=== PATIENT | male | born 1945 | race Caucasian/White ===

== ENCOUNTER 2017-05-22 16:55 | Inpatient (IN) | payer MEDICARE ==
[2017-05-22] MEDS ORDERED: IPRATROPIUM-ALBUTEROL 3 ML NEB INHALATION STA (18:05)
[2017-05-22] MEDS ORDERED: SODIUM CHLORIDE 0.9% 1,000 ML IV STA (18:05)
[2017-05-22] MEDS ORDERED: SODIUM CHLORIDE 0.9% 500 ML IV STA ×2 (18:05→19:09)
[2017-05-22 18:24] LABS: Basophils % (A) 1 %; Eosinophils # (A) 0.3 k/uL (0-0.7); Eosinophils % (A) 6 %; HCT 31.1 % (39.0-53.0); Lymphocytes # (A) 0.8 k/uL (1.0-4.8); Lymphocytes % (A) 20 %; MCH 29.2 pg (25.0-35.0); MCHC 35.2 g/dL (31.0-37.0); Mean Platelet Volume 6.3; Monocytes # (A) 0.5 k/uL (0-1.0); Monocytes % (A) 11 %; Neutrophils # (A) 2.5 k/uL (1.3-7.7); Neutrophils % (A) 60 %; Platelet Count 259 k/uL (150-450); RBC 3.76 m/uL (4.30-5.90); RDW 14.5 % (11.5-15.5); WBC 4.2 k/uL (3.8-10.6)
[2017-05-22 18:25] LABS: MCV 82.8 fL (80.0-100.0)
[2017-05-22 18:33] LABS: D-Dimer 3.1 mg/L FEU (<0.60)
[2017-05-22 18:38] LABS: INR 0.9 (<1.2); Partial Thromboplastin Time 24.4 sec (22.0-30.0); Prothrombin Time 9.4 sec (9.0-12.0)
[2017-05-22 18:41] LABS: ALT 31 U/L (21-72); AST 33 U/L (17-59); Albumin 3.8 g/dL (3.5-5.0); Alkaline Phosphatase 100 U/L (38-126); Anion Gap 9 mmol/L; Blood Urea Nitrogen 17 mg/dL (9-20); Calcium 9.2 mg/dL (8.4-10.2); Carbon Dioxide 27 mmol/L (22-30); Chloride 90 mmol/L (98-107); Glucose 138 mg/dL (74-99); Magnesium 1.5 mg/dL (1.6-2.3); Potassium 4.2 mmol/L (3.5-5.1); Sodium 126 mmol/L (137-145); Total Bilirubin 0.2 mg/dL (0.2-1.3); Total Protein 6.9 g/dL (6.3-8.2)
[2017-05-22 18:46] LABS: Creatine Kinase 197 U/L (55-170)
[2017-05-22 18:59] LABS: Troponin I <0.012 ng/mL (0.000-0.034)
[2017-05-22 19:01] LABS: Creatine Kinase MB 3.9 ng/mL (0.0-2.4)
--- NOTE | 2017-05-22 19:06 | XR ---
EXAMINATION TYPE: XR chest 2V DATE OF EXAM: 05/22/2017 COMPARISON: 01/08/2011 HISTORY: Cough and difficulty breathing TECHNIQUE: Frontal and lateral views of the chest are obtained. FINDINGS: There is no heart failure nor confluent pneumonic infiltrate. There is slight coarsening o f interstitial markings. There are chest leads. Costophrenic angles are clear. Bony thorax is intact. There is neurostimulator in the thoracic spine. IMPRESSION: Mild pulmonary fibrotic changes. No acute lung disease. No change compared to old exam.
[2017-05-22] MEDS ORDERED: MAGNESIUM SULFATE-D5W PMX 1 GM in DEXTROSE/WATER 1 100ML.BAG IVPB ONE (19:09)
[2017-05-22] MEDS ORDERED: MAGNESIUM OXIDE 400 MG TAB PO STA (19:09)
[2017-05-22] MEDS ORDERED: RX INFO: IV CONTRAST WAS GIVEN 1 EACH MISC MISCELLANE PRN (19:09)
--- NOTE | 2017-05-22 19:42 | ED ---
General Adult HPI - General Chief complaint: Upper Respiratory Infection Stated complaint: Cough/Difficulty Breathing Time Seen by Provider: 05/22/17 17:20 Source: patient, RN notes reviewed, old records reviewed Mode of arrival: ambulatory Limitations: no limitations - History of Present Illness Initial comments: This is a 72-year-old male to the ER for evaluation. This patient is a for evaluation of cough. Cough and shortness of breath. Patient has medical history significant for COPD diabetes hypertension. Patient has been seen by family doctor and evaluated, told possible pneumonia. Patient's was also significantly in the week she has gotten better. She states this patient with the cough is only worsen, he feels like he is getting progressively weaker and more fatigued. Patient denies significant fevers no chest pain. - Related Data Home Medications Medication Instructions Recorded Confirmed Albuterol Inhaler [Ventolin 2 puff INHALATION RT-Q6H PRN 01/02/15 05/22/17 Inhaler] Budesonide/Formoterol Fumarate 2 puff INHALATION RT-BID PRN 01/02/15 05/22/17 [Symbicort 80-4.5 Mcg Inhaler] Dilaudid Pain Pump 1 dose EPIDURAL CONTINUOUS 01/02/15 05/22/17 Omeprazole [PriLOSEC] 20 mg PO DAILY 01/02/15 05/22/17 Solifenacin Succinate [Vesicare] 10 mg PO DAILY 01/02/15 05/22/17 amLODIPine [Norvasc] 5 mg PO QAM 01/02/15 05/22/17 glipiZIDE [Glucotrol] 15 mg PO DAILY 01/02/15 05/22/17 Albuterol Nebulized [Ventolin 2.5 mg INHALATION RT-Q6H PRN 05/22/17 05/22/17 Nebulized] Losartan/Hydrochlorothiazide 1 tab PO DAILY 05/22/17 05/22/17 [Losartan-Hctz 100-25 mg Tab] PARoxetine HCL [Paxil] 40 mg PO DAILY 05/22/17 05/22/17 Pregabalin [Lyrica] 150 mg PO TID 05/22/17 05/22/17 oxyCODONE-APAP 10-325MG [Percocet 1 tab PO Q6HR PRN 05/22/17 05/22/17 10-325 mg] Allergies Allergy/AdvReac Type Severity Reaction Status Date / Time No Known Allergies Allergy Verified 05/22/17 17:46 Review of Systems ROS Statement: Those systems with pertinent positive or pertinent negative responses have been documented in the HPI. ROS Other: All systems not noted in ROS Statement are negative. Past Medical History Past Medical History: COPD, Diabetes Mellitus, GERD/Reflux, Hypertension History of Any Multi-Drug Resistant Organisms: None Reported Past Surgical History: Back Surgery, Joint Replacement, Orthopedic Surgery Additional Past Surgical History / Comment(s): colectomy, nose surgery Past Psychological History: Depression Smoking Status: Former smoker Past Alcohol Use History: None Reported Past Drug Use History: None Reported General Exam Limitations: no limitations General appearance: alert, in no apparent distress Head exam: Present: atraumatic, normocephalic, normal inspection Eye exam: Present: normal appearance, PERRL, EOMI. Absent: scleral icterus, conjunctival injection, periorbital swelling ENT exam: Present: normal exam, mucous membranes moist Neck exam: Present: normal inspection. Absent: tenderness, meningismus, lymphadenopathy Respiratory exam: Present: normal lung sounds bilaterally. Absent: respiratory distress, wheezes, rales, rhonchi, stridor Cardiovascular Exam: Present: regular rate, normal rhythm, normal heart sounds. Absent: systolic murmur, diastolic murmur, rubs, gallop, clicks GI/Abdominal exam: Present: soft, normal bowel sounds. Absent: distended, tenderness, guarding, rebound, rigid Extremities exam: Present: normal inspection, full ROM, normal capillary refill. Absent: tenderness, pedal edema, joint swelling, calf tenderness Back exam: Present: normal inspection Neurological exam: Present: alert, oriented X3, CN II-XII intact Psychiatric exam: Present: normal affect, normal mood Skin exam: Present: warm, dry, intact, normal color. Absent: rash Course Vital Signs 05/22/17 05/22/17 05/22/17 16:58 18:18 18:32 Temperature 98.5 F Pulse Rate 89 62 68 Respiratory 20 16 16 Rate Blood Pressure 146/68 O2 Sat by Pulse 94 L Oximetry 05/22/17 05/22/17 19:12 20:07 Temperature 97.6 F Pulse Rate 63 64 Respiratory 20 20 Rate Blood Pressure 158/59 169/78 O2 Sat by Pulse 98 98 Oximetry - Reevaluation(s) Reevaluation #1: 05/22/17 19:42 Patient is feeling much better with breathing treatment and symptom therapy EKG Findings - EKG Comments: EKG Findings:: EKG shows normal sinus rhythm rate of 60, TX 172, QRS 90, QTc 436 Medical Decision Making - Medical Decision Making 72 male the ER for evaluation, patient is ER for evaluation of cough congestion. Continue cough and congestion despite outpatient therapy, antibiotics. Patient has significant electrolyte or male is continuing to weakness and hyponatremia magnesium and chloride. Patient admit for electronically replacement, steroids and breathing treatments - Lab Data Result diagrams: 05/22/17 17:54 05/22/17 17:54 Lab Results 05/22/17 05/22/17 05/22/17 Range/Units 17:54 17:54 17:54 WBC 4.2 (3.8-10.6) k/uL RBC 3.76 L (4.30-5.90) m/uL Hgb 11.0 L (13.0-17.5) gm/dL Hct 31.1 L (39.0-53.0) % MCV 82.8 D (80.0-100.0) fL MCH 29.2 (25.0-35.0) pg MCHC 35.2 (31.0-37.0) g/dL RDW 14.5 (11.5-15.5) % Plt Count 259 (150-450) k/uL Neutrophils % 60 % Lymphocytes % 20 % Monocytes % 11 % Eosinophils % 6 % Basophils % 1 % Neutrophils # 2.5 (1.3-7.7) k/uL Lymphocytes # 0.8 L (1.0-4.8) k/uL Monocytes # 0.5 (0-1.0) k/uL Eosinophils # 0.3 (0-0.7) k/uL Basophils # 0.0 (0-0.2) k/uL PT (9.0-12.0) sec INR (<1.2) APTT (22.0-30.0) sec D-Dimer (<0.60) mg/L FEU Sodium 126 L (137-145) mmol/L Potassium 4.2 (3.5-5.1) mmol/L Chloride 90 L (98-107) mmol/L Carbon Dioxide 27 (22-30) mmol/L Anion Gap 9 mmol/L BUN 17 (9-20) mg/dL Creatinine 0.70 (0.66-1.25) mg/dL Est GFR (MDRD) Af Amer >60 (>60 ml/min/1.73 sqM) Est GFR (MDRD) Non-Af >60 (>60 ml/min/1.73 sqM) Glucose 138 H (74-99) mg/dL Calcium 9.2 (8.4-10.2) mg/dL Magnesium 1.5 L (1.6-2.3) mg/dL Total Bilirubin 0.2 (0.2-1.3) mg/dL AST 33 (17-59) U/L ALT 31 (21-72) U/L Alkaline Phosphatase 100 (38-126) U/L Total Creatine Kinase 197 H (55-170) U/L CK-MB (CK-2) 3.9 H* (0.0-2.4) ng/mL CK-MB (CK-2) Rel Index 2.0 Troponin I <0.012 (0.000-0.034) ng/mL NT-Pro-B Natriuret Pep pg/mL Total Protein 6.9 (6.3-8.2) g/dL Albumin 3.8 (3.5-5.0) g/dL Influenza Type A RNA (Not Detectd) Influenza Type B (PCR) (Not Detectd) 05/22/17 05/22/17 05/22/17 Range/Units 17:54 17:54 17:54 WBC (3.8-10.6) k/uL RBC (4.30-5.90) m/uL Hgb (13.0-17.5) gm/dL Hct (39.0-53.0) % MCV (80.0-100.0) fL MCH (25.0-35.0) pg MCHC (31.0-37.0) g/dL RDW (11.5-15.5) % Plt Count (150-450) k/uL Neutrophils % % Lymphocytes % % Monocytes % % Eosinophils % % Basophils % % Neutrophils # (1.3-7.7) k/uL Lymphocytes # (1.0-4.8) k/uL Monocytes # (0-1.0) k/uL Eosinophils # (0-0.7) k/uL Basophils # (0-0.2) k/uL PT 9.4 (9.0-12.0) sec INR 0.9 (<1.2) APTT 24.4 (22.0-30.0) sec D-Dimer 3.10 H (<0.60) mg/L FEU Sodium (137-145) mmol/L Potassium (3.5-5.1) mmol/L Chloride (98-107) mmol/L Carbon Dioxide (22-30) mmol/L Anion Gap mmol/L BUN (9-20) mg/dL Creatinine (0.66-1.25) mg/dL Est GFR (MDRD) Af Amer (>60 ml/min/1.73 sqM) Est GFR (MDRD) Non-Af (>60 ml/min/1.73 sqM) Glucose (74-99) mg/dL Calcium (8.4-10.2) mg/dL Magnesium (1.6-2.3) mg/dL Total Bilirubin (0.2-1.3) mg/dL AST (17-59) U/L ALT (21-72) U/L Alkaline Phosphatase (38-126) U/L Total Creatine Kinase (55-170) U/L CK-MB (CK-2) (0.0-2.4) ng/mL CK-MB (CK-2) Rel Index Troponin I (0.000-0.034) ng/mL NT-Pro-B Natriuret Pep 95 pg/mL Total Protein (6.3-8.2) g/dL Albumin (3.5-5.0) g/dL Influenza Type A RNA Not Detected (Not Detectd) Influenza Type B (PCR) Not Detected (Not Detectd) - Radiology Data Radiology results: report reviewed (Chest x-ray CTA chest negative for acute disease), image reviewed Disposition Clinical Impression: Acute exacerbation of chronic obstructive pulmonary disease (COPD), Hyponatremia, Failure of outpatient treatment Disposition: ADMITTED IP TO THIS HOSP Condition: Fair Referrals: Singh Childers MD [Primary Care Provider] - 1-2 days
--- NOTE | 2017-05-22 19:58 | CT ---
EXAMINATION TYPE: CT angio chest DATE OF EXAM: 05/22/2017 7:49 PM COMPARISON: NONE HISTORY: Cough and shortness of breath x couple weeks. CT DLP: 631 mGycm Automated exposure control for dose reduction was used. CONTRAST: CTA scan of the thorax is performed with IV Contrast, patient injected with 82 mL of Omnipaque 350, p ulmonary embolism protocol. There are 3-D post processed images.. FINDINGS: There is some groundglass interstitial infiltrate in the right upper lobe. There is similar change in the superior segment right lower lobe. Thoracic aorta is atheromatous. There is no evidence of aneurysm or dissection. There are multiple me diastinal lymph nodes that measure up to 1 cm. There are bilateral bronchial lymph nodes that measure up to 1 cm. There is no pericardial effusion. Heart size is normal. There is no pleural effusion. There is no evidence of a pulmonary mass. I see no filling defects in the pulmonary arteries. There is some spurring in the thoracic spine. I s ee no focal bone destruction. There is neurostimulator in the thoracic spine. IMPRESSION: NO EVIDENCE OF PULMONARY EMBOLISM. ATHEROSCLEROTIC VASCULAR DISEASE. INTERSTITIAL PULMONARY INFILTRATES ON THE RIGHT SIDE. MILD MEDIASTINAL AND BRONCHIAL ADENOPATHY. THIS IS NONSPECIFIC.
[2017-05-22] MEDS ORDERED: methylPREDNISolone SOD SUCCI 125 MG/2 ML VIAL IV STA (20:10)
[2017-05-22] MEDS ORDERED: SODIUM CHLORIDE 0.9% 1,000 ML IV SCH (20:15)
[2017-05-22] MEDS ORDERED: AZITHROMYCIN 500 MG in SODIUM CHLORIDE 0.9% 250 ML IVPB STA (20:37)
[2017-05-22] MEDS ORDERED: ALBUTEROL NEBULIZED 2.5 MG/3 ML INHALATION PRN (22:15)
[2017-05-22] MEDS ORDERED: PARoxetine 20 MG TAB PO SCH ×2 (22:15→23:00)
[2017-05-22] MEDS ORDERED: ALBUTEROL INHALER 60 PUFF/8 GM INHALER INHALATION PRN (22:15)
[2017-05-22 22:52] LABS: Glucose,Whole Blood 353 mg/dL (75-99)
[2017-05-22] MEDS: oxyCODONE-APAP 10-325MG 1 EACH TAB PO PRN (23:27)
[2017-05-22] MEDS: guaiFENesin SYRUP 100MG/5ML 200 MG/10 ML CUP PO PRN (23:27)
[2017-05-22] MEDS: INSULIN ASPART 100 UNIT/ML 1 ML 10 ML VIAL SQ SCH (23:27)
[2017-05-22] MEDS: MAGNESIUM SULFATE-D5W PMX 1 GM in DEXTROSE/WATER 1 100ML.BAG IVPB SCH ×2 (23:27→23:34)
[2017-05-22] MEDS: SODIUM CHLORIDE 0.9% 1,000 ML IV SCH (23:28)
[2017-05-22] MEDS: PREGABALIN 75 MG CAP PO SCH (23:34)
[2017-05-22] MEDS: methylPREDNISolone SOD SUCCI 125 MG/2 ML VIAL IV SCH (23:36)
[2017-05-22] MEDS: PARoxetine 20 MG TAB PO SCH (23:38)
[2017-05-23] MEDS: methylPREDNISolone SOD SUCCI 125 MG/2 ML VIAL IV SCH ×4 (06:36→18:30)
[2017-05-23] MEDS ORDERED: INSULIN ASPART 100 UNIT/ML 1 ML 10 ML VIAL SQ SCH (07:30)
[2017-05-23 07:52] LABS: Glucose,Whole Blood 194 mg/dL (75-99)
[2017-05-23 08:00] LABS: Basophils % (A) 0 %; Eosinophils % (A) 0 %; HCT 34.3 % (39.0-53.0); HGB 11.3 gm/dL (13.0-17.5); Lymphocytes # (A) 0.4 k/uL (1.0-4.8); Lymphocytes % (A) 18 %; MCH 28.5 pg (25.0-35.0); MCHC 33.1 g/dL (31.0-37.0); MCV 86.1 fL (80.0-100.0); Mean Platelet Volume 6.1; Monocytes % (A) 1 %; Neutrophils # (A) 1.7 k/uL (1.3-7.7); Neutrophils % (A) 79 %; Platelet Count 282 k/uL (150-450); RBC 3.99 m/uL (4.30-5.90); RDW 13.7 % (11.5-15.5); WBC 2.2 k/uL (3.8-10.6)
[2017-05-23] MEDS: oxyCODONE-APAP 10-325MG 1 EACH TAB PO PRN ×2 (08:00→20:59)
[2017-05-23] MEDS: AZITHROMYCIN 500 MG in SODIUM CHLORIDE 0.9% 250 ML IVPB SCH (08:07)
[2017-05-23] MEDS: ENOXAPARIN 40 MG/0.4 ML SYRINGE SQ SCH (08:07)
[2017-05-23] MEDS: glipiZIDE 5 MG TAB PO SCH (08:07)
[2017-05-23] MEDS: amLODIPine 5 MG TAB PO SCH (08:08)
[2017-05-23] MEDS: INSULIN ASPART 100 UNIT/ML 1 ML 10 ML VIAL SQ SCH ×4 (08:08→20:58)
[2017-05-23] MEDS: LOSARTAN-HCTZ 50-12.5 MG 1 EACH TAB PO SCH (08:08)
[2017-05-23] MEDS: OXYBUTYNIN XL 5 MG TAB.ER.24 PO SCH (08:08)
[2017-05-23] MEDS: PANTOPRAZOLE 40 MG TABLET PO SCH (08:09)
[2017-05-23 08:13] LABS: ALT 35 U/L (21-72); AST 31 U/L (17-59); Albumin 3.9 g/dL (3.5-5.0); Alkaline Phosphatase 92 U/L (38-126); Anion Gap 11 mmol/L; Blood Urea Nitrogen 14 mg/dL (9-20); Calcium 9.5 mg/dL (8.4-10.2); Carbon Dioxide 28 mmol/L (22-30); Chloride 94 mmol/L (98-107); Glucose 196 mg/dL (74-99); Potassium 4.6 mmol/L (3.5-5.1); Sodium 133 mmol/L (137-145); Total Bilirubin 0.3 mg/dL (0.2-1.3)
--- NOTE | 2017-05-23 08:55 | P.CNPUL ---
History of Present Illness Consult date: 05/23/17 Reason for consult: dyspnea, cough, COPD, pneumonia, abnormal CXR/CT Chief complaint: Cough shortness of breath and congestion for several weeks History of present illness: Mr. Cisneros is a pleasant 72-year-old male who was seen eval reexamined on fourth floor. Patient has a long-standing history of severe COPD emphysema has been on bronchodilator therapy at home with a baseline shortness of breath on minimal activity and exertion. He has not been feeling well for the last couple of weeks with progressive increased breathing difficulty until a point comes when he started having severe degree of congestive feeling in the lungs with extensive cough and difficult to expectorate, lately cough has been severe and more intense very little amount of thick purulent sputum has been noted on rare occasion but he developed severe tightness and pain in the chest, his have been sick at home as well with similar symptoms and complained, due to progressive nature of symptoms he was treated on outpatient basis for COPD exacerbation without any significant relief and eventually advised to come into the emergency department for further evaluation and intervention and treatment, patient underwent a chest x-ray and CT and laboratory data which I have reviewed patient denies any dizziness loss of consciousness on), denies any chest pain except pain during coughing and increased shortness of breath with coughing denies any nausea vomiting diarrhea night complain of intermittent chills and does have some feverish feeling off and on Review of Systems All systems: negative Past Medical History Past Medical History: COPD, Diabetes Mellitus, GERD/Reflux, Hypertension History of Any Multi-Drug Resistant Organisms: None Reported Past Surgical History: Back Surgery, Joint Replacement, Orthopedic Surgery Additional Past Surgical History / Comment(s): colectomy, nose surgery Past Psychological History: Depression Smoking Status: Former smoker Past Alcohol Use History: None Reported Past Drug Use History: None Reported Medications and Allergies Home Medications Medication Instructions Recorded Confirmed Type Albuterol Inhaler [Ventolin 2 puff INHALATION RT-Q6H PRN 01/02/15 05/22/17 History Inhaler] Budesonide/Formoterol Fumarate 2 puff INHALATION RT-BID PRN 01/02/15 05/22/17 History [Symbicort 80-4.5 Mcg Inhaler] Dilaudid Pain Pump 1 dose EPIDURAL CONTINUOUS 01/02/15 05/22/17 History Omeprazole [PriLOSEC] 20 mg PO DAILY 01/02/15 05/22/17 History Solifenacin Succinate [Vesicare] 10 mg PO DAILY 01/02/15 05/22/17 History amLODIPine [Norvasc] 5 mg PO QAM 01/02/15 05/22/17 History glipiZIDE [Glucotrol] 15 mg PO DAILY 01/02/15 05/22/17 History Albuterol Nebulized [Ventolin 2.5 mg INHALATION RT-Q6H PRN 05/22/17 05/22/17 History Nebulized] Losartan/Hydrochlorothiazide 1 tab PO DAILY 05/22/17 05/22/17 History [Losartan-Hctz 100-25 mg Tab] PARoxetine HCL [Paxil] 40 mg PO DAILY 05/22/17 05/22/17 History Pregabalin [Lyrica] 150 mg PO TID 05/22/17 05/22/17 History oxyCODONE-APAP 10-325MG [Percocet 1 tab PO Q6HR PRN 05/22/17 05/22/17 History 10-325 mg] Allergies Allergy/AdvReac Type Severity Reaction Status Date / Time No Known Allergies Allergy Verified 05/22/17 17:46 Physical Exam Vitals: Vital Signs Temp Pulse Pulse Resp BP BP Pulse Ox 05/23/17 07:00 96.8 F L 58 L 18 172/88 97 05/22/17 23:00 96.4 F L 58 L 16 155/84 97 05/22/17 20:07 97.6 F 64 20 169/78 98 05/22/17 19:12 63 20 158/59 98 05/22/17 18:32 68 16 05/22/17 18:18 62 16 05/22/17 16:58 98.5 F 89 20 146/68 94 L Intake and Output 05/22/17 05/23/17 05/23/17 22:59 06:59 14:59 Output Total 400 500 Balance -400 -500 Output: Urine 400 500 Other: # Voids 2 Weight 87.997 kg 87.997 kg - Constitutional On deep breathing patient is going to coughing spells which is very congested and nonproductive General appearance: average body habitus, cooperative, disheveled, mild distress - EENT Eyes: PERRLA, normal appearance ENT: hearing grossly normal - Neck Neck: normal ROM Carotids: bilateral: upstroke normal, bruit absent Thyroid: bilateral: normal size, negative: enlarged, firm, nodule - Respiratory Respiratory: bilateral: diminished, rhonchi, wheezing, prolonged expiration, negative: dullness, rales, prolonged inspiration - Cardiovascular Heart sounds: normal: S1, S2 - Gastrointestinal General gastrointestinal: decreased bowel sounds, soft - Integumentary Integumentary: normal, normal turgor - Neurologic Neurologic: CNII-XII intact - Musculoskeletal Musculoskeletal: gait normal, generalized weakness, strength equal bilaterally - Psychiatric Psychiatric: A&O x's 3, appropriate affect, intact judgment & insight Results - Laboratory Findings CBC and BMP: 05/23/17 07:39 05/23/17 07:39 PT/INR, D-dimer PT 9.4 sec (9.0-12.0) 05/22/17 17:54 INR 0.9 (<1.2) 05/22/17 17:54 D-Dimer 3.10 mg/L FEU (<0.60) H 05/22/17 17:54 Abnormal lab findings: Abnormal Labs 05/22/17 05/22/17 05/22/17 17:54 17:54 17:54 WBC RBC 3.76 L Hgb 11.0 L Hct 31.1 L Lymphocytes # 0.8 L D-Dimer Sodium 126 L Chloride 90 L Creatinine Glucose 138 H POC Glucose (mg/dL) Magnesium 1.5 L Total Creatine Kinase 197 H CK-MB (CK-2) 3.9 H* 05/22/17 05/22/17 05/23/17 17:54 22:46 07:17 WBC RBC Hgb Hct Lymphocytes # D-Dimer 3.10 H Sodium Chloride Creatinine Glucose POC Glucose (mg/dL) 353 H 194 H Magnesium Total Creatine Kinase CK-MB (CK-2) 05/23/17 05/23/17 07:39 07:39 WBC 2.2 L RBC 3.99 L Hgb 11.3 L Hct 34.3 L Lymphocytes # 0.4 L D-Dimer Sodium 133 L Chloride 94 L Creatinine 0.62 L Glucose 196 H POC Glucose (mg/dL) Magnesium Total Creatine Kinase CK-MB (CK-2) - Diagnostic Findings Chest x-ray: report reviewed, image reviewed CT scan - chest: report reviewed, image reviewed (Computed tomography scan of the chest revealed absence of pulmonary embolism, there is groundglass attenuation is present the right upper lobe as well as the superior segment of the right lower lobe highly suggestive of developing pneumonia, mediastinal and hilar lymphadenopathy of 1 cm size is seen likely reactive, overall lung parenchyma findings are consistent with severe COPD and emphysema, bronchial tubes noted to be dilated suggestive of the bronchiectasis with thickening of the bronchial carreno suggestive of ongoing refill inflammatory changes) Assessment and Plan Assessment: Right upper lobe and right lower lobe pneumonia Acute COPD exacerbation Mediastinal lymphadenopathy likely reactive related to above Baseline severe COPD emphysema Uncontrolled hyperglycemia and diabetes Hypertension hypertensive cardiovascular disease GERD Plan: Agree with IV steroids, breathing treatments, Zithromax We'll add IV Rocephin Continue gentle rehydration Continue home medications including therapy for hypertension hypertensive cardiovascular disease Maintain patient on DVT and peptic ulcer disease prophylaxis Anticipated patient will stay in the hospital about 2-3 days Further recommendations pending plan of care as per clinical response of patient care plan discussed with the patient at length, appreciated involving us in care of patient will follow with you Time with Patient: Greater than 30
[2017-05-23] MEDS: IPRATROPIUM-ALBUTEROL 3 ML NEB INHALATION SCH ×5 (09:05→19:08)
[2017-05-23] MEDS: SYMBICORT 80-4.5 MCG INHALER INHALATION PRN (09:05)
--- NOTE | 2017-05-23 09:32 | HP ---
HISTORY AND PHYSICAL CHIEF COMPLAINT: Persistent cough, difficult breathing, now going on for 3 weeks. This is a 72-year-old male, well known to me, came to the emergency room for evaluation of cough and shortness of breath. His shortness of breath became significant yesterday and he called me on the phone because of his distance now living in the [facility] and I told him it would be better to be evaluated by the emergency room because of his history of long-time COPD. He came to [facility] was evaluated, felt he had an acute exacerbation of COPD plus a hyponatremia with a sodium of 126 and was placed in the hospital accordingly. PAST MEDICAL HISTORY: Past medical history of moderately severe COPD, type 2 diabetes, under good control, GE reflux, hypertension, severe degenerative disc disease of the lower back with a procedure with application of fiberglass stabilizers from mid thorax all the way down to L5. He has also been on chronic pain pump, Demerol, being taken care of initially at [facility] with recent negotiation with changing here to the [facility]. He also has a history of peripheral neuropathy, long-standing history fibromyalgia. He has also had a neurogenic bladder and generalized osteoarthritis. MEDICATIONS: Medications include that of: 1. Ventolin inhaler 1 to 2 puffs a day or/and DuoNeb updrafts 4 times a day. 2. He has a history of Symbicort 80/4.5 mcg inhaler 2 puffs b.i.d. 3. He is on his Dilaudid pump, which is epidural pump. It is loaded monthly. 4. Omeprazole 20 mg a day. 5. VESIcare 10 mg a day. 6. Norvasc 10 mg. 7. He takes 15 of Glucotrol daily. 8. Losartan 100/25 daily. 9. Paxil 40 daily. 10.Lyrica 150 mg t.i.d. 11.He takes Percocet 1 tablet every 6 hours p.r.n. pain. ALLERGIES: He has none. PAST SURGICAL HISTORY: He has had a lumbar surgery and just recently had his right and left knee replaced at [facility] 1 month apart. At one time, he did have colectomy for diverticulitis. It has been reanastomosed. He has had surgery. PSYCHOLOGICAL: There has been some history of depression in the past. He has been stabilized with Paxil and has done really well. ALCOHOL USE: There was an extreme use of alcohol years ago. He does not drink at all at this period of time. SMOKING HISTORY: He was a 2 pack a day x30 years history. He stopped smoking within the last 10 years. FAMILY HISTORY: There is no record of family history with questioning about coronary artery disease, cancer, etc. He has a negative history. REVIEW OF SYSTEMS: EYES: He has had many problems with his eyes as far as blurriness. He does have several cataracts being watched. ENT: Nose, he has had a deviated septum without surgery. He does occasionally use nasal spray. ALLERGIES: He has allergies to the normal dust outside and occasional wheeze. RESPIRATORY: He does have a cough today. He was short of breath. He said the cough has been going on for approximately 3 weeks. He had used an updraft machine and was nonresponsive, so came to the hospital after 4 uses over a period of 12 hours. CARDIAC: Negative cardiac history. No orthopnea. No paroxysmal nocturnal dyspnea. No palpitations. No reported myocardial infarction in the past. GI: He has loose stool occasionally. He did have a very loose stool x2. Second stool he was tested for C difficile. We will wait for the results, but he has no constipation. He has had no emesis. No hematemesis. No melena. No reported abdominal pain. : He has to push for urination, but he said he use of medications like Flomax have not helped him before and most recently he has developed over the last 2 to 3 years uncontrol of his bladder, which has been documented to be secondary from neurogenic loss of control because of his chronic back problem. SKIN: He says he has discoloration of lower legs. BACK: Chronic pain from mid back, which is modified by pain medicine, but the ain never goes away 100%. PSYCHIATRIC: No depression at this time, really no anxiety. The patient has never been admitted for psychiatric reasons. PHYSICAL EXAMINATION: Physical examination at this time is a alert, well, white male, well oriented to person, place, and thing really no anxiety and no depression just very concerned as is his about his condition. Blood pressure is 155/84, heart rate is in the 60s. His respiratory rate is between 16 and 20. Temperature is 96.8 and he is on O2, O2 of 97 on 2 L. EYES: Pupils are equal, round, reactive to light accommodation. He does wear glasses. FACE: He has got facial and nasal deviation. He is also complaining of pain over the frontal and maxillary sinus this morning. Mouth/ENT: Appears to be within normal limits. NECK: Range of motion is decreased in all planes, but no JVD. No palpable masses and good carotid upstroke on auscultation. CHEST: Wheezes, rhonchi throughout. No rales. Heart is sinus rhythm. No murmur. Negative S3. Negative S4. ABDOMEN: Soft, nontender with no organomegaly. No palpable masses on a gentleman who is thin. : Genitalia and rectal examination was not completed. LOWER EXTREMITIES: The patient has discoloration of lower legs. He has decreased pulses to lower extremities bilaterally, you can see the scars of recent knee replacement of late last year, both right and left. Appears to be minimal swelling bilaterally. There is no swelling in the lower legs. The patient actually has good great toe strength. Range of motion of the lumbar spine is very limited. He can sit at 90 degrees, but for very short periods of time. INTEGUMENTARY: There is no lesions on his face, back, or chest on evaluation or lower extremities forearms of significance. ASSESSMENT: 1. Acute exacerbation of chronic obstructive pulmonary disease. 2. Long-standing history of chronic back pain with severe degenerative disc disease with radiculopathy. 3. Longstanding hypertension. 4. Recent type 2 diabetes which has been controlled with glipizide. 5. Severe hyponatremia, which is being treated. 6. Appears chronic bronchitis and maybe even some bronchiectasis on CT scan. 7. Depression, which has been stable. 8. History of some fibromyalgia and depression, which has been stable. PLAN: We put him on IV steroids with tapering amount. He is on Zithromax. Also put for his hyponatremia and hyponatremia being treated accordingly with normal saline. We are waiting for the results of the Chem 17 today, which is not back as of 8:24. He does have evidence of at this time with his WBC going from 4.2 to 2.2. Please refer to my orders. MMODL / IJN: [id number] /
--- NOTE | 2017-05-23 11:40 | XR ---
Sinuses HISTORY: Right-sided sinus pressure 4 views of the sinuses is submitted. Patient is edentulous, there are likely hearing aids present noted incidentally. Postprocedural coley es are noted within the maxilla and mandible. There is no air-fluid level to suggest acute sinusitis. Orbits are intact. IMPRESSION: Correlate for point tenderness to assess for sinusitis. Sinus CT may be of benefit.
[2017-05-23 11:55] LABS: Glucose,Whole Blood 244 mg/dL (75-99)
[2017-05-23] MEDS: PREGABALIN 75 MG CAP PO SCH ×3 (12:19→20:59)
[2017-05-23] MEDS: SODIUM CHLORIDE 0.9% 1,000 ML IV SCH (12:22)
[2017-05-23 16:04] LABS: Hemoglobin A1C 6.5 % (4.0-6.0)
[2017-05-23 17:45] LABS: Glucose,Whole Blood 421 mg/dL (75-99)
[2017-05-23] MEDS ORDERED: INSULIN REGULAR 100 UNIT/ML VIAL SQ ONE (18:12)
[2017-05-23 20:33] LABS: Glucose,Whole Blood 321 mg/dL (75-99)
[2017-05-23] MEDS: PARoxetine 20 MG TAB PO SCH (21:00)
[2017-05-24] MEDS: oxyCODONE-APAP 10-325MG 1 EACH TAB PO PRN ×4 (03:02→22:20)
[2017-05-24] MEDS: methylPREDNISolone SOD SUCCI 125 MG/2 ML VIAL IV SCH ×3 (03:02→17:34)
[2017-05-24] MEDS: SODIUM CHLORIDE 0.9% 1,000 ML IV SCH ×2 (03:06→11:55)
[2017-05-24 07:52] LABS: Glucose,Whole Blood 180 mg/dL (75-99)
[2017-05-24 08:17] LABS: Basophils % (A) 0 %; Eosinophils % (A) 0 %; HCT 31.7 % (39.0-53.0); HGB 10.4 gm/dL (13.0-17.5); Lymphocytes # (A) 0.6 k/uL (1.0-4.8); Lymphocytes % (A) 7 %; MCH 28.6 pg (25.0-35.0); MCHC 32.8 g/dL (31.0-37.0); Mean Platelet Volume 6.2; Monocytes # (A) 0.3 k/uL (0-1.0); Monocytes % (A) 3 %; Neutrophils # (A) 7.5 k/uL (1.3-7.7); Neutrophils % (A) 89 %; Platelet Count 283 k/uL (150-450); RBC 3.64 m/uL (4.30-5.90); RDW 15.1 % (11.5-15.5); WBC 8.4 k/uL (3.8-10.6)
--- NOTE | 2017-05-24 08:21 | P.PN ---
Subjective Progress Note Date: 05/24/17 Principal diagnosis: Right upper lobe and right lower lobe community-acquired pneumonia, acute COPD exacerbation, mediastinal lymphadenopathy likely reactive, baseline severe COPD emphysema, uncontrolled diabetes and hyperglycemia, hypertension and hypertensive cardiovascular disease, GERD 05/24/2017, patient seen eval examined during the rounds from [facility] standpoint still have component of shortness breath and wheezing is still congested but severity is slightly improved patient has a predominantly a nonproductive cough and dyspnea on exertion. Patient has been tolerating antibiotics steroids and breathing treatments fairly well Mr. Cisneros is a pleasant 72-year-old male who was seen eval reexamined on fourth floor. Patient has a long-standing history of severe COPD emphysema has been on bronchodilator therapy at home with a baseline shortness of breath on minimal activity and exertion. He has not been feeling well for the last couple of weeks with progressive increased breathing difficulty until a point comes when he started having severe degree of congestive feeling in the lungs with extensive cough and difficult to expectorate, lately cough has been severe and more intense very little amount of thick purulent sputum has been noted on rare occasion but he developed severe tightness and pain in the chest, his have been sick at home as well with similar symptoms and complained, due to progressive nature of symptoms he was treated on outpatient basis for COPD exacerbation without any significant relief and eventually advised to come into the emergency department for further evaluation and intervention and treatment, patient underwent a chest x-ray and CT and laboratory data which I have reviewed patient denies any dizziness loss of consciousness on), denies any chest pain except pain during coughing and increased shortness of breath with coughing denies any nausea vomiting diarrhea night complain of intermittent chills and does have some feverish feeling off and on Objective - Vital Signs Vital signs: Vital Signs Temp 97.0 F L 05/24/17 07:00 Pulse 58 L 05/24/17 07:00 Resp 18 05/24/17 07:00 BP 198/84 05/24/17 07:00 Pulse Ox 93 L 05/24/17 07:00 Intake & Output 05/23/17 05/24/17 05/24/17 18:59 06:59 18:59 Intake Total 900 Balance 900 Intake: Intake, IV Titration 900 Amount Sodium Chloride 0.9% 1, 900 000 ml @ 75 mls/hr IV . [id number] [facility] Rx#:[id number] Other: # Voids 3 # Bowel Movements 1 - Exam - Constitutional On deep breathing patient is going to coughing spells which is very congested and nonproductive General appearance: average body habitus, cooperative, disheveled, mild distress - EENT Eyes: PERRLA, normal appearance ENT: hearing grossly normal - Neck Neck: normal ROM Carotids: bilateral: upstroke normal, bruit absent Thyroid: bilateral: normal size, negative: enlarged, firm, nodule - Respiratory Respiratory: bilateral: diminished, rhonchi, wheezing, prolonged expiration, negative: dullness, rales, prolonged inspiration - Cardiovascular Heart sounds: normal: S1, S2 - Gastrointestinal General gastrointestinal: decreased bowel sounds, soft - Integumentary Integumentary: normal, normal turgor - Neurologic Neurologic: CNII-XII intact - Musculoskeletal Musculoskeletal: gait normal, generalized weakness, strength equal bilaterally - Psychiatric Psychiatric: A&O x's 3, appropriate affect, intact judgment & insight - Labs CBC & Chem 7: 05/23/17 07:39 05/23/17 07:39 Labs: Abnormal Lab Results - Last 24 Hours (Table) 05/23/17 05/23/17 05/23/17 Range/Units 07:39 11:53 17:00 POC Glucose (mg/dL) 244 H 421 H (75-99) mg/dL Hemoglobin A1c 6.5 H (4.0-6.0) % 05/23/17 05/24/17 Range/Units 20:26 07:48 POC Glucose (mg/dL) 321 H 180 H (75-99) mg/dL Hemoglobin A1c (4.0-6.0) % Microbiology - Last 24 Hours (Table) 05/22/17 17:54 Blood Culture - Preliminary Blood No Growth after 24 hours Assessment and Plan Assessment: Right upper lobe and right lower lobe pneumonia Acute COPD exacerbation Mediastinal lymphadenopathy likely reactive related to above Baseline severe COPD emphysema Uncontrolled hyperglycemia and diabetes Hypertension hypertensive cardiovascular disease GERD Leukopenia Borderline hyponatremia Plan: Agree with IV steroids, breathing treatments, Zithromax We'll add IV Rocephin Continue gentle rehydration Continue home medications including therapy for hypertension hypertensive cardiovascular disease Maintain patient on DVT and peptic ulcer disease prophylaxis Anticipated patient will stay in the hospital about 2-3 days Further recommendations pending plan of care as per clinical response of patient care plan discussed with the patient at length, appreciated involving us in care of patient will follow with you Time with Patient: Greater than 30
[2017-05-24 08:27] LABS: Anion Gap 8 mmol/L; Blood Urea Nitrogen 21 mg/dL (9-20); Calcium 9.4 mg/dL (8.4-10.2); Carbon Dioxide 28 mmol/L (22-30); Chloride 97 mmol/L (98-107); Glucose 161 mg/dL (74-99); Potassium 4.2 mmol/L (3.5-5.1); Sodium 133 mmol/L (137-145)
[2017-05-24] MEDS: IPRATROPIUM-ALBUTEROL 3 ML NEB INHALATION SCH ×4 (08:37→19:50)
[2017-05-24] MEDS: SYMBICORT 80-4.5 MCG INHALER INHALATION PRN ×2 (08:42→19:52)
[2017-05-24] MEDS: ENOXAPARIN 40 MG/0.4 ML SYRINGE SQ SCH (08:46)
[2017-05-24] MEDS: OXYBUTYNIN XL 5 MG TAB.ER.24 PO SCH (08:47)
[2017-05-24] MEDS: LOSARTAN-HCTZ 50-12.5 MG 1 EACH TAB PO SCH (08:47)
[2017-05-24] MEDS: glipiZIDE 5 MG TAB PO SCH (08:47)
[2017-05-24] MEDS: INSULIN ASPART 100 UNIT/ML 1 ML 10 ML VIAL SQ SCH ×4 (08:47→22:17)
[2017-05-24] MEDS: PANTOPRAZOLE 40 MG TABLET PO SCH (08:47)
[2017-05-24] MEDS: amLODIPine 5 MG TAB PO SCH (08:47)
[2017-05-24] MEDS: AZITHROMYCIN 500 MG in SODIUM CHLORIDE 0.9% 250 ML IVPB SCH (08:53)
[2017-05-24] MEDS: guaiFENesin SYRUP 100MG/5ML 200 MG/10 ML CUP PO PRN (08:55)
[2017-05-24] MEDS ORDERED: hydrALAZINE HCL 20 MG/ML 1 ML VIAL IVP PRN (09:11)
[2017-05-24] MEDS: PREGABALIN 75 MG CAP PO SCH ×3 (09:15→22:17)
--- NOTE | 2017-05-24 09:40 | CT ---
EXAMINATION TYPE: DATE OF EXAM: 05/24/2017 COMPARISON: Previous study dated 01/19/2016. HISTORY: Sinusitis CT DLP: 538.60 mGycm. Automated Exposure Control for Dose Reduction was Utilized. TECHNIQUE: CT scan of the sinuses is performed without contrast, axial images are obtained, coronal r eformatted images are also reviewed. FINDINGS: There is mild mucosal thickening involving all of the paranasal sinuses with relative spari ng of the left sphenoid sinus. Infundibulum on the right is occluded. The infundibulum on the left ap pears patent. Soft tissues appear unremarkable. The orbits appear normal. IMPRESSION: CHRONIC PANSINUSITIS WITH RELATIVE SPARING OF THE LEFT SPHENOID SINUS. THE RIGHT INFUNDIBULUM APPEARS OCCLUDED.
--- NOTE | 2017-05-24 09:47 | PN ---
PROGRESS NOTE Juan F Cisneros is a 72-year-old male, well known to me, came to emergency for evaluation of cough, shortness of breath. His shortness of breath became significant on the day of admission so he was brought into the emergency room. Evaluation in the emergency room, he was found to have exacerbation of COPD, also productive of phlegm. The patient has past medical history of very significant COPD, type 2 diabetes, GE reflux, hypertension, severe degenerative disc disease of the lower back with multiple procedures including fiberglass stabilization from mid thorax to down L5. He has also been on a chronic pain pump, Demerol first started at [facility] and then recently negotiated with [facility], he also has a history of peripheral neuropathy, longstanding fibromyalgia and neurogenic bladder from his back, BPH, hypertension and depression which has been stable. MEDICATIONS: At this time include that of Vinod seals, Norvasc 5 mg daily. He is on Zithromax 500 along with Rocephin 1 g daily. He takes Symbicort 80/4.5 2 puffs twice a day. He is on Lovenox injectable, Robitussin, Glucotrol 15 mg daily, Hyzaar 50/12.5, NovoLog to scale, methylprednisone 60 q.8, Ditropan XL 5 mg a day. Percocet 1 every 6 hours p.r.n. pain Protonix 40, Paxil 40, Lyrica 150 3 times a day, and Humalog to scale. LABORATORY DATA: His recent labs including last night was a sugar of 421, and he was followed by 321 4 hours later, which was treated accordingly and this morning he has one of 180 secondary from his diabetes progressed by his steroids. His sodium today has increased to 133 and a 4.2 potassium. His creatinine is 0.76 and 161 blood sugar today. His WBC is normal at 8.4 with a 10.4 hemoglobin, his WBC increased from 2.2 to 8.4 respectively. Microbiology so far, there is nothing growing in his blood culture. REVIEW OF SYSTEMS: Eyes: He does wear glasses. Has some problems seeing. ENT problems swallowing some times. Neck: No problems with his neck except for decreased range of motion for cervical spine with pain. Respiratory: He is coughing up phlegm. Heart: He only has chest pain when he coughs. No palpitations. No orthopnea. No proximal nocturnal dyspnea. GI: Abdomen is no hematemesis, melena or hematochezia. Occasional nausea, loose stool but no diarrhea. The patient did have a negative influenza A and B. Musculoskeletal: He has got weakness in his legs. 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 Of interest he has had a bilateral knee replacement with 1 month apart from each other and has been doing good with this. We did a chest x-ray to rule out DVT along with CT scan which was negative. His x-rays are unequivocal at this time. PHYSICAL EXAM: He is alert white male in minimal distress. His temperature is 94, heart rate is 85 at this time, blood pressure 135/80, temperature 97. Eyes: Pupils are equal, round, react to light accommodation. ENT showed tympanic membranes and pharynx to be negative. NECK: Supple. Midline trachea. Heart is regular sinus rhythm with no murmur. ABDOMEN: Soft, nontender with no organomegaly. Going back to his lung exam he does have a minimal amount of wheezing and his phlegm clears post-tussive. Knees can see the scars of recent knee replacement. Minimal swelling in his legs. No palpable Homans. Good vascular palpation. Arthritis in his hands and wrists are there. Psychiatric: There appears no depression. He seems upbeat today. ASSESSMENT: 1. Acute exacerbation of chronic obstructive pulmonary disease with what appears tracheobronchitis. 2. Long-standing history of chronic back pain with severe degenerative disc disease. 3. Previous pneumonias. 4. Longstanding hypertension. 5. Recent type 2 diabetes, well controlled with glipizide. 6. Resolving hyponatremia. 7. Chronic depression. 8. Fibromyalgia. 9. Severe degenerative disc disease with major surgery repair. 10.Recent bilateral knee replacement. We have decreased his steroids to q8 last p.m. Sugars have dropped down. His prognosis is still guarded. Appreciate pulmonology, Dr. Recinos on this case. MMODL / IJN: [id number] /
[2017-05-24 11:45] LABS: Glucose,Whole Blood 280 mg/dL (75-99)
[2017-05-24] MEDS: cefTRIAXone IN SWFI 1,000 MG/10 ML SYRINGE IVP SCH (11:49)
[2017-05-24 17:34] LABS: Glucose,Whole Blood 138 mg/dL (75-99)
[2017-05-24 20:48] LABS: Glucose,Whole Blood 344 mg/dL (75-99)
[2017-05-24] MEDS: PARoxetine 20 MG TAB PO SCH (22:18)
[2017-05-25] MEDS: methylPREDNISolone SOD SUCCI 125 MG/2 ML VIAL IV SCH ×2 (03:00→09:15)
[2017-05-25] MEDS: SODIUM CHLORIDE 0.9% 1,000 ML IV SCH ×2 (04:31→17:37)
[2017-05-25] MEDS: oxyCODONE-APAP 10-325MG 1 EACH TAB PO PRN (06:03)
[2017-05-25] MEDS: LOSARTAN-HCTZ 50-12.5 MG 1 EACH TAB PO SCH (07:05)
[2017-05-25] MEDS: amLODIPine 5 MG TAB PO SCH (07:06)
[2017-05-25 07:39] LABS: Glucose,Whole Blood 126 mg/dL (75-99)
[2017-05-25] MEDS: IPRATROPIUM-ALBUTEROL 3 ML NEB INHALATION SCH ×4 (07:40→19:56)
[2017-05-25] MEDS: SYMBICORT 80-4.5 MCG INHALER INHALATION PRN (07:41)
[2017-05-25 07:52] LABS: Basophils % (A) 0 %; Eosinophils % (A) 0 %; HCT 32.7 % (39.0-53.0); HGB 10.3 gm/dL (13.0-17.5); Lymphocytes # (A) 0.5 k/uL (1.0-4.8); Lymphocytes % (A) 6 %; MCH 28.1 pg (25.0-35.0); MCHC 31.6 g/dL (31.0-37.0); MCV 88.7 fL (80.0-100.0); Mean Platelet Volume 6.3; Monocytes # (A) 0.3 k/uL (0-1.0); Monocytes % (A) 4 %; Neutrophils # (A) 7.4 k/uL (1.3-7.7); Neutrophils % (A) 89 %; Platelet Count 299 k/uL (150-450); RBC 3.68 m/uL (4.30-5.90); RDW 15.3 % (11.5-15.5); WBC 8.3 k/uL (3.8-10.6)
[2017-05-25 08:04] LABS: Anion Gap 11 mmol/L; Blood Urea Nitrogen 24 mg/dL (9-20); Calcium 9.6 mg/dL (8.4-10.2); Carbon Dioxide 26 mmol/L (22-30); Chloride 99 mmol/L (98-107); Glucose 110 mg/dL (74-99); Potassium 4.3 mmol/L (3.5-5.1); Sodium 136 mmol/L (137-145)
[2017-05-25] MEDS: glipiZIDE 5 MG TAB PO SCH (09:13)
[2017-05-25] MEDS: OXYBUTYNIN XL 5 MG TAB.ER.24 PO SCH (09:13)
[2017-05-25] MEDS: ENOXAPARIN 40 MG/0.4 ML SYRINGE SQ SCH (09:14)
[2017-05-25] MEDS: INSULIN ASPART 100 UNIT/ML 1 ML 10 ML VIAL SQ SCH ×4 (09:14→20:44)
[2017-05-25] MEDS: cefTRIAXone IN SWFI 1,000 MG/10 ML SYRINGE IVP SCH (09:14)
[2017-05-25] MEDS: AZITHROMYCIN 500 MG in SODIUM CHLORIDE 0.9% 250 ML IVPB SCH (09:14)
[2017-05-25] MEDS: PANTOPRAZOLE 40 MG TABLET PO SCH (09:15)
[2017-05-25] MEDS: PREGABALIN 75 MG CAP PO SCH ×4 (10:10→20:12)
--- NOTE | 2017-05-25 12:13 | PN ---
PROGRESS NOTE uJan F Cisneros is a 72-year-old white male, well known to me, came to the emergency room after being evaluated with cough, shortness of breath, found to be acute exacerbation of COPD. His O2 sats were down in the 80s. He was hospitalized accordingly. This had been going on for several days. Of interest is in the last several months, he had both right and left knees replaced and he has had a longstanding history of type 2 diabetes, GE reflux, hypertension, degenerative disc disease and severe lumbar stenosis and degenerative disc disease of the mid dorsal spine down to the lower lumbar. MEDICATIONS: At this time is DuoNeb updrafts, Norvasc 10 mg, Zithromax 100 mg, along with Rocephin 1 mg daily, Symbicort 80/4.5 2 puffs twice a day, injectable Lovenox, Robitussin, Glucotrol 15, Hyzaar 100/12.5, NovoLog per scale, Ditropan 5, Percocet for breakthrough pain q.6 hours, Protonix 40 mg daily, Paxil 40 mg daily, Lyrica 150 mg 3 times a day and again Humalog to scale. LABS: 10.3 hemoglobin and 8.3 with WBC count. Creatinine is at 0.8 with a 24 BUN. Blood sugars have been between 180 and 126. He did have one 341. Microbiology shows no growth and blood culture also additional medications that we did not mention. His Methylprednisone 60 mg q8. REVIEW OF SYSTEMS: Eyes: He uses glasses. ENT says a dry mouth. Neck no problem with his neck. Negative neck. Chest he has some minimal wheezes. Minimal cough. He says he feels very good today. Heart: No chest pain. No shortness of breath. No orthopnea or proximal nocturnal dyspnea. GI no hematemesis, melena or hematochezia. Appetite is good. He has had a bowel movement and has not had any diarrhea. : No problems with urination at this point. Neuromuscular: He has got some cramping in his legs and his hands. Skin: He has no rashes. ALLERGIES: Had a chronic stuffy nose and sinusitis with sinusitis present on x-ray. To his Zithromax we have added the Ceftin 1000 mg IV piggyback, which will help with sinusitis. PHYSICAL EXAMINATION: Alert, white male in good condition. He had a blood pressure this morning of 185 with no followup here at noon, temperature 97, respiratory rate was 20, and heart rate was 60s. EYES: Pupils are equal, round, react to light and accommodation. ENT showed tympanic membranes and pharynx to be negative. There is some facial pressure pain on the right maxillary. Evaluation on the left is showing the area of sinusitis. Mouth is negative. Neck is negative. Chest essentially clear to auscultation. No wheezes. No rhonchi. Heart sinus rhythm with no murmur. At this point, abdomen soft, nontender with no organomegaly. Lower extremities: He does have scars in his knee from recent replacement. Decreased swelling in his leg. Good hand strength. ASSESSMENT: 1. Acute exacerbation of chronic obstructive pulmonary disease and some tracheobronchitis, sinusitis, pansinusitis. 2. Longstanding history. 3. Non-insulin history of chronic back pain with severe degenerative disc disease and intractable pain, needing a pain pump. 4. Previous pneumonias. 5. Longstanding hypertension. 6. Recent type 2 diabetes, well controlled. 7. Resolving hyponatremia. 8. Chronic depression. 9. Fibromyalgia. 10.Bilateral knee replacements recently. 11.Some dementia exacerbated by chronic pain medication. PLAN: We will continue him on the same medications. Decrease his steroids today with chance to be discharged tomorrow. MMODL / IJN: [id number] /
[2017-05-25 12:39] LABS: Glucose,Whole Blood 188 mg/dL (75-99)
[2017-05-25] MEDS: methylPREDNISolone SOD SUCCI 40 MG/ML 1 ML VIAL IV SCH ×2 (14:09→18:33)
[2017-05-25 17:35] LABS: Glucose,Whole Blood 193 mg/dL (75-99)
[2017-05-25] MEDS: PARoxetine 20 MG TAB PO SCH (20:09)
[2017-05-25 20:57] LABS: Glucose,Whole Blood 276 mg/dL (75-99)
[2017-05-26] MEDS: methylPREDNISolone SOD SUCCI 40 MG/ML 1 ML VIAL IV SCH ×2 (01:26→05:39)
[2017-05-26 03:46] LABS: Mycoplasma IgM Antibody 0.45 INDEX (<=0.90)
[2017-05-26] MEDS: oxyCODONE-APAP 10-325MG 1 EACH TAB PO PRN (05:43)
[2017-05-26] MEDS: SODIUM CHLORIDE 0.9% 1,000 ML IV SCH (05:58)
[2017-05-26 07:28] LABS: Glucose,Whole Blood 149 mg/dL (75-99)
[2017-05-26 07:33] VITALS: BP 193/92; RESP 16; TEMP 97.3
[2017-05-26] MEDS: SYMBICORT 80-4.5 MCG INHALER INHALATION PRN (07:47)
[2017-05-26] MEDS: IPRATROPIUM-ALBUTEROL 3 ML NEB INHALATION SCH (07:47)
[2017-05-26 08:01] VITALS: PULSE 70
[2017-05-26] MEDS: ENOXAPARIN 40 MG/0.4 ML SYRINGE SQ SCH (08:05)
[2017-05-26] MEDS: PANTOPRAZOLE 40 MG TABLET PO SCH (08:06)
[2017-05-26] MEDS: glipiZIDE 5 MG TAB PO SCH (08:06)
[2017-05-26] MEDS: LOSARTAN-HCTZ 50-12.5 MG 1 EACH TAB PO SCH (08:06)
[2017-05-26] MEDS: AZITHROMYCIN 500 MG in SODIUM CHLORIDE 0.9% 250 ML IVPB SCH (08:06)
[2017-05-26] MEDS: PREGABALIN 75 MG CAP PO SCH (08:06)
[2017-05-26] MEDS: OXYBUTYNIN XL 5 MG TAB.ER.24 PO SCH (08:06)
[2017-05-26] MEDS: amLODIPine 5 MG TAB PO SCH (08:06)
[2017-05-26] MEDS: INSULIN ASPART 100 UNIT/ML 1 ML 10 ML VIAL SQ SCH (08:07)
[2017-05-26] MEDS: cefTRIAXone IN SWFI 1,000 MG/10 ML SYRINGE IVP SCH (10:06)
--- NOTE | 2017-05-26 15:28 | P.DS ---
Providers Date of admission: 05/22/17 20:10 Expected date of discharge: 05/26/17 Attending physician: Singh Childers Consults: 05/22/17 22:05 Consult Physician Routine Consulting Provider: Elmo Recinos Consult Reason/Comments: COPD Do you want consulting provider notified?: Yes, Notify in am Primary care physician: Singh Childers Hospital Course: 72-year-old male who presented to the emergency room with a chief complaint of shortness of breath and cough. He also complained of pain and pressure behind his right eye and felt as though it was related to his sinuses. Chest x-ray revealed mild pulmonary fibrotic changes and was negative for an acute process. CT of the chest was completed which was negative for a pulmonary embolus. It did reveal interstitial pneumonia infiltrates on the right side. Mild mediastinal and bronchial adenopathy. X-rays of the sinuses was completed which did not show air fluid levels to suggest acute sinusitis. CT of the sinuses was recommended and completed. CT of the sinuses revealed chronic thompson sinusitis with relative sparing of the left sphenoid sinus. Testing for influenza a and B was negative. Urine Legionella was not detected. Mycoplasma pneumoniae IgG 1.28. IgM 0.45. The patient was started on IV Solu -Medrol during hospitalization. It has since been weaned down and transition to oral. The patient was hyponatremic at admission with a sodium of 126. He received IV fluids and his sodium was 136 upon discharge. The patient's shortness of breath has resolved and his respiratory status has remained stable. He was deemed stable for discharge per Dr. Childers. Prescriptions were sent to the patient's preferred pharmacy for a steroid taper and Biaxin 500 mg every 12 hours x 5 days. DISCHARGE DIAGNOSIS: Acute exacerbation of chronic obstructive pulmonary disease with tracheobronchitis, sinusitis, pansinusitis Right upper lobe and right lower lobe pneumonia per pulmonary Chronic back pain with severe degenerative disc disease and intractable pain, requiring pain pump History of pneumonia Essential hypertension Diabetes mellitus type 2 Hyponatremia, resolved at time of discharge Fibromyalgia Dementia Nurse practitioner note has been reviewed by physician. Signing provider agrees with the documented findings, assessment, and plan of care. Patient Condition at Discharge: Stable Plan - Discharge Summary Discharge Rx Participant: Yes New Discharge Prescriptions: New Clarithromycin [Biaxin] 500 mg PO Q12HR #14 tablet predniSONE See Taper PO DAILY #30 tab Continue amLODIPine [Norvasc] 5 mg PO QAM glipiZIDE [Glucotrol] 15 mg PO DAILY Omeprazole [PriLOSEC] 20 mg PO DAILY Albuterol Inhaler [Ventolin Hfa Inhaler] 2 puff INHALATION RT-Q6H PRN PRN Reason: Shortness Of Breath Budesonide/Formoterol Fumarate [Symbicort 80-4.5 Mcg Inhaler] 2 puff INHALATION RT-BID PRN PRN Reason: Shortness Of Breath Solifenacin Succinate [Vesicare] 10 mg PO DAILY Dilaudid Pain Pump 1 dose EPIDURAL CONTINUOUS oxyCODONE-APAP 10-325MG [Percocet 10-325 mg] 1 tab PO Q6HR PRN PRN Reason: Pain Albuterol Nebulized [Ventolin Nebulized] 2.5 mg INHALATION RT-Q6H PRN PRN Reason: Shortness Of Breath Pregabalin [Lyrica] 150 mg PO TID PARoxetine HCL [Paxil] 40 mg PO DAILY Losartan/Hydrochlorothiazide [Losartan-Hctz 100-25 mg Tab] 1 tab PO DAILY Discharge Medication List Albuterol Inhaler [Ventolin Hfa Inhaler] 2 puff INHALATION RT-Q6H PRN 01/02/15 [ History] Budesonide/Formoterol Fumarate [Symbicort 80-4.5 Mcg Inhaler] 2 puff INHALATION RT-BID PRN 01/02/15 [History] Dilaudid Pain Pump 1 dose EPIDURAL CONTINUOUS 01/02/15 [History] Omeprazole [PriLOSEC] 20 mg PO DAILY 01/02/15 [History] Solifenacin Succinate [Vesicare] 10 mg PO DAILY 01/02/15 [History] amLODIPine [Norvasc] 5 mg PO QAM 01/02/15 [History] glipiZIDE [Glucotrol] 15 mg PO DAILY 01/02/15 [History] Albuterol Nebulized [Ventolin Nebulized] 2.5 mg INHALATION RT-Q6H PRN 05/22/17 [ History] Losartan/Hydrochlorothiazide [Losartan-Hctz 100-25 mg Tab] 1 tab PO DAILY [History] PARoxetine HCL [Paxil] 40 mg PO DAILY 05/22/17 [History] Pregabalin [Lyrica] 150 mg PO TID 05/22/17 [History] oxyCODONE-APAP 10-325MG [Percocet 10-325 mg] 1 tab PO Q6HR PRN 05/22/17 [History ] Clarithromycin [Biaxin] 500 mg PO Q12HR #14 tablet 05/26/17 [Rx] predniSONE See Taper PO DAILY #30 tab 05/26/17 [Rx] Follow up Appointment(s)/Referral(s): Singh Childers MD [Primary Care Provider] - 1 Week (You have an appointment on June 05 at 11am.) Elmo Recinos MD [STAFF PHYSICIAN] - 1 Week (You have an appointment on FridayJune 06 at 11 am.) Patient Instructions/Handouts: Sinusitis (GEN), COPD (Chronic Obstructive Pulmonary Disease) (DC) Activity/Diet/Wound Care/Special Instructions: Cardiac, diabetic diet. Discharge Disposition: HOME SELF-CARE
== END 2017-05-26 10:20 | disposition home or self-care (01) | DRG 190 ==
LOC: EC 16:55 → 4MS4W 20:10
PROVIDERS: ADMIT Family Medicine; ATTEND Family Medicine
DX: J44.1 Chronic obstructive pulmonary disease with (acute) exacerbation (principal); J18.9 Pneumonia, unspecified organism; E87.1 Hypo-osmolality and hyponatremia; E11.65 Type 2 diabetes mellitus with hyperglycemia; E11.42 Type 2 diabetes mellitus with diabetic polyneuropathy; J44.0 Chronic obstructive pulmonary disease with (acute) lower respiratory infection; N31.9 Neuromuscular dysfunction of bladder, unspecified; F03.90 Unspecified dementia, unspecified severity, without behavioral disturbance, psychotic disturbance, mood disturbance, and anxiety; M51.16 Intervertebral disc disorders with radiculopathy, lumbar region; M51.14 Intervertebral disc disorders with radiculopathy, thoracic region; D72.819 Decreased white blood cell count, unspecified; F32.9 Major depressive disorder, single episode, unspecified; G89.29 Other chronic pain; I11.9 Hypertensive heart disease without heart failure; J32.4 Chronic pansinusitis; K21.9 Gastro-esophageal reflux disease without esophagitis; M15.9 Polyosteoarthritis, unspecified; M48.061 Spinal stenosis, lumbar region without neurogenic claudication; M79.7 Fibromyalgia; N40.0 Benign prostatic hyperplasia without lower urinary tract symptoms; R59.0 Localized enlarged lymph nodes; Z79.899 Other long term (current) drug therapy; Z79.84 Long term (current) use of oral hypoglycemic drugs; Z79.891 Long term (current) use of opiate analgesic; Z87.01 Personal history of pneumonia (recurrent); Z87.891 Personal history of nicotine dependence; Z96.653 Presence of artificial knee joint, bilateral
CPT/HCPCS: 36415; 70220; 70486; 71046; 71275; 80048; 80053; 82550; 82553; 83036; 83735; 83880; 84484; 85025; 85379; 85610; 85730; 86738; 87040; 87449; 87502; 93005; 94640; 94760; 96361; 96365; 96375; 99285

== ENCOUNTER → 2017-09-03 | Outpatient (CLI) | payer MEDICARE ==
[~2017-09-03] MED LIST: REGADENOSON 0.4 MG/5 ML SYRINGE IV ONE
--- NOTE | 2017-09-03 12:32 | EST ---
EXERCISE STRESS DATE OF SERVICE: 09/03/2017 AGE: 72 SEX: Male HT: 69" WT: 178 pounds PROTOCOL: Lexiscan Cardiolite STAGE: DURATION OF EXERCISE: HEART RATE REST: 60 BLOOD PRESSURE REST: 178/76 MAXIMUM HEART RATE ACHIEVED: 70 MAXIMUM BLOOD PRESSURE: 178/76 85% MPHR: 127 100% MPHR: 149 METS: INDICATIONS: Pre-op CLINICAL INFORMATION: Baseline rhythm is sinus mechanism, rate 60, normal axis and intervals. Normal electrocardiogram. Baseline blood pressure 178/76 mmHg. The patient received injection of Lexiscan. Electrocardiographic monitoring revealed rare PVCs. Cardiolite was injected per protocol. CONCLUSION: 1. Nondiagnostic electrocardiographic stress testing. 2. Nuclear images will be reported separately. MMODL / IJN: [id number] /
--- NOTE | 2017-09-03 15:35 | NM ---
EXAMINATION TYPE: NM stress lexiscan cardiolite DATE OF EXAM: 09/03/2017 COMPARISON: NONE HISTORY: I 25.10, coronary artery disease TECHNIQUE: After the intravenous administration of 10.11 mCi Tc 99m Sestamibi - Cardiolite resting S PECT images acquired 45 minutes post injection. The patient received 0.4mg Lexiscan, 23.3 mCi Tc 99m Sestamibi - Stress images obtained [address] injection FINDINGS: Review of stress and rest SPECT images demonstrates no distinct perfusion abnormality. Some gut activ ity noted inferiorly. Gated analysis shows normal wall motion with an estimated left ventricular eje ction fraction of 54 %. IMPRESSION: No scintigraphic evidence for reversible ischemia.
== END ==
LOC: RADNMMAIN 09:00
PROVIDERS: ATTEND Internal Medicine Cardiovascular Disease
DX: I25.10 Atherosclerotic heart disease of native coronary artery without angina pectoris (principal)
CPT/HCPCS: 93017; 78452; A9500; J2785

== ENCOUNTER 2017-11-11 15:03 | Emergency (ER) | payer MEDICARE ==
[2017-11-11] MEDS ORDERED: SODIUM CHLORIDE 0.9% 500 ML IV STA (15:26)
--- NOTE | 2017-11-11 15:31 | ED ---
General Adult HPI - General Source: family, RN notes reviewed Mode of arrival: ambulatory Limitations: no limitations <Jorge Meek - Last Filed: 11/11/17 16:25> <Jorge Moore - Last Filed: 11/11/17 20:21> - General Chief complaint: Weakness Stated complaint: Weakness Time Seen by Provider: 11/11/17 15:05 - History of Present Illness Initial comments: This is a 72-year-old male who presents emergency Department according to the started having diarrhea yesterday and into today and he became very lethargic. Patient was very sleepy but when aroused is alert and oriented. Patient does not have any specific complaints other than he feels extremely tired and he continues to have diarrhea. patient denies any recent fever chills. Patient denies any chest pain palpitations difficulty breathing or shortness of breath. Patient denies any abdominal pain. Patient denies headache patient denies numbness or focal weakness. Patient denies being lightheaded or dizzy. (Jorge Meek) - Related Data Home Medications Medication Instructions Recorded Confirmed Albuterol Inhaler [Ventolin Hfa 2 puff INHALATION RT-Q6H PRN 01/02/15 11/11/17 Inhaler] Budesonide/Formoterol Fumarate 2 puff INHALATION RT-BID PRN 01/02/15 11/11/17 [Symbicort 80-4.5 Mcg Inhaler] Dilaudid Pain Pump 1 dose EPIDURAL CONTINUOUS 01/02/15 11/11/17 Omeprazole [PriLOSEC] 20 mg PO DAILY 01/02/15 11/11/17 amLODIPine [Norvasc] 5 mg PO QAM 01/02/15 11/11/17 glipiZIDE [Glucotrol] 15 mg PO DAILY 01/02/15 11/11/17 Albuterol Nebulized [Ventolin 2.5 mg INHALATION RT-Q6H PRN 05/22/17 11/11/17 Nebulized] Losartan/Hydrochlorothiazide 1 tab PO DAILY 05/22/17 11/11/17 [Losartan-Hctz 100-25 mg Tab] PARoxetine HCL [Paxil] 40 mg PO DAILY 05/22/17 11/11/17 oxyCODONE-APAP 10-325MG [Percocet 1 tab PO Q6HR PRN 05/22/17 11/11/17 10-325 mg] Cyclobenzaprine [Flexeril] 10 mg PO TID 11/11/17 11/11/17 Donepezil [Aricept] 10 mg PO HS 11/11/17 11/11/17 Pregabalin [Lyrica] 100 mg PO TID 11/11/17 11/11/17 Tamsulosin HCl [Flomax] 0.4 mg PO DAILY 11/11/17 11/11/17 Allergies Allergy/AdvReac Type Severity Reaction Status Date / Time No Known Allergies Allergy Verified 11/11/17 15:55 Review of Systems ROS Other: All systems not noted in ROS Statement are negative. <Jorge Meek - Last Filed: 11/11/17 16:25> ROS Other: All systems not noted in ROS Statement are negative. <Jorge Moore - Last Filed: 11/11/17 20:21> ROS Statement: Those systems with pertinent positive or pertinent negative responses have been documented in the HPI. Past Medical History Past Medical History: COPD, Diabetes Mellitus, GERD/Reflux, Hypertension History of Any Multi-Drug Resistant Organisms: None Reported Past Surgical History: Back Surgery, Joint Replacement, Orthopedic Surgery Additional Past Surgical History / Comment(s): colectomy, nose surgery, back surgery, Past Psychological History: Depression Smoking Status: Former smoker Past Alcohol Use History: None Reported Past Drug Use History: None Reported <Jorge Meek - Last Filed: 11/11/17 16:25> General Exam Limitations: no limitations <Jorge Meek - Last Filed: 11/11/17 16:25> General appearance: alert, in no apparent distress Head exam: Present: atraumatic, normocephalic, normal inspection Eye exam: Present: normal appearance, PERRL, EOMI. Absent: scleral icterus, conjunctival injection, periorbital swelling ENT exam: Present: normal exam, mucous membranes moist Neck exam: Present: normal inspection. Absent: tenderness, meningismus, lymphadenopathy Respiratory exam: Present: normal lung sounds bilaterally. Absent: respiratory distress, wheezes, rales, rhonchi, stridor Cardiovascular Exam: Present: regular rate, normal rhythm, normal heart sounds. Absent: systolic murmur, diastolic murmur, rubs, gallop, clicks GI/Abdominal exam: Present: soft, normal bowel sounds. Absent: distended, tenderness, guarding, rebound, rigid Extremities exam: Present: normal inspection, full ROM, normal capillary refill. Absent: tenderness, pedal edema, joint swelling, calf tenderness Back exam: Present: normal inspection Neurological exam: Present: alert, oriented X3, CN II-XII intact Psychiatric exam: Present: normal affect, normal mood Skin exam: Present: warm, dry, intact, normal color. Absent: rash <Jorge Moore - Last Filed: 11/11/17 20:21> - General Exam Comments Initial Comments: GENERAL: Patient is well-developed and well-nourished. Patient is nontoxic and well- hydrated and is in mild distress. ENT: Neck is soft and supple. No significant lymphadenopathy is noted. Oropharynx is clear. Moist mucous membranes. Neck has full range of motion without eliciting any pain. EYES: The sclera were anicteric and conjunctiva were pink and moist. Extraocular movements were intact and pupils were equal round and reactive to light. Eyelids were unremarkable. PULMONARY: Unlabored respirations. Good breath sounds bilaterally. No audible rales rhonchi or wheezing was noted. CARDIOVASCULAR: There is a regular rate and rhythm without any murmurs gallops or rubs. ABDOMEN: Soft and nontender with normal bowel sounds. No palpable organomegaly was noted. There is no palpable pulsatile mass. SKIN: Skin is clear with no lesions or rashes and otherwise unremarkable. NEUROLOGIC: Patient is alert and oriented x3. Cranial nerves II through XII are grossly intact. Motor and sensory are also intact. Normal speech, volume and content. Symmetrical smile. MUSCULOSKELETAL: Normal extremities with adequate strength and full range of motion. No lower extremity swelling or edema. No calf tenderness. LYMPHATICS: No significant lymphadenopathy is noted PSYCHIATRIC: Normal psychiatric evaluation. Normal interpersonal interactions appears functionally intact in deals appropriately with others. No signs of depression. No signs of anxiety. (Jorge Meek) Vital Signs 11/11/17 11/11/17 11/11/17 15:05 16:09 18:06 Temperature 98.5 F Pulse Rate 73 65 63 Respiratory 18 16 16 Rate Blood Pressure 161/85 190/84 187/86 O2 Sat by Pulse 95 98 98 Oximetry 11/11/17 19:31 Temperature Pulse Rate 66 Respiratory 18 Rate Blood Pressure 188/87 O2 Sat by Pulse 99 Oximetry Medical Decision Making - Lab Data Result diagrams: 11/11/17 15:25 <Jorge Meek - Last Filed: 11/11/17 16:25> - Lab Data Result diagrams: 11/11/17 15:25 11/11/17 15:25 - Radiology Data Radiology results: report reviewed (CT brain, CTA chest, negative for acute disease), image reviewed <Jorge Moore - Last Filed: 11/11/17 20:21> - Medical Decision Making EKG shows normal sinus rhythm at 72 bpm DE interval is 168 QRSs 104 QT interval 420 QTC is 459. Patient's EKG shows no ST segment elevation or depression or T wave abnormalities Dr. Moore will be taking over the care of this patient at 4:30 (Jorge Meek) 72 male currently currently now awake and alert, is multiple testing done to figure out, source of weakness. No cause found. Patient can be discharged home (Jorge Moore) - Lab Data Lab Results 11/11/17 11/11/17 11/11/17 Range/Units 15:25 15:25 15:25 WBC 4.7 (3.8-10.6) k/uL RBC 4.00 L (4.30-5.90) m/uL Hgb 11.3 L (13.0-17.5) gm/dL Hct 33.6 L (39.0-53.0) % MCV 84.0 (80.0-100.0) fL MCH 28.3 (25.0-35.0) pg MCHC 33.7 (31.0-37.0) g/dL RDW 14.8 (11.5-15.5) % Plt Count 387 (150-450) k/uL Neutrophils % 71 % Lymphocytes % 16 % Monocytes % 10 % Eosinophils % 1 % Basophils % 0 % Neutrophils # 3.3 (1.3-7.7) k/uL Lymphocytes # 0.7 L (1.0-4.8) k/uL Monocytes # 0.5 (0-1.0) k/uL Eosinophils # 0.1 (0-0.7) k/uL Basophils # 0.0 (0-0.2) k/uL PT (9.0-12.0) sec INR (<1.2) APTT (22.0-30.0) sec D-Dimer (<0.60) mg/L FEU VBG pH (7.31-7.41) VBG pCO2 (37-51) mmHg VBG HCO3 (24-28) mmol/L Sodium 130 L (137-145) mmol/L Potassium 4.0 (3.5-5.1) mmol/L Chloride 93 L (98-107) mmol/L Carbon Dioxide 27 (22-30) mmol/L Anion Gap 10 mmol/L BUN 13 (9-20) mg/dL Creatinine 0.50 L (0.66-1.25) mg/dL Est GFR (CKD-EPI)AfAm >90 (>60 ml/min/1.73 sqM) Est GFR (CKD-EPI)NonAf >90 (>60 ml/min/1.73 sqM) Glucose 71 L (74-99) mg/dL Plasma Lactic Acid Lam (0.7-2.0) mmol/L Calcium 9.7 (8.4-10.2) mg/dL Magnesium 1.8 (1.6-2.3) mg/dL Total Bilirubin 0.4 (0.2-1.3) mg/dL AST 41 (17-59) U/L ALT 36 (21-72) U/L Alkaline Phosphatase 152 H (38-126) U/L Ammonia (<30) umol/L Total Creatine Kinase 136 (55-170) U/L CK-MB (CK-2) 1.9 (0.0-2.4) ng/mL CK-MB (CK-2) Rel Index 1.4 Troponin I <0.012 (0.000-0.034) ng/mL Total Protein 7.5 (6.3-8.2) g/dL Albumin 4.3 (3.5-5.0) g/dL Urine Color Urine Appearance (Clear) Urine pH (5.0-8.0) Ur Specific [place] (1.001-1.035) Urine Protein (Negative) Urine Glucose (UA) (Negative) Urine Ketones (Negative) Urine Blood (Negative) Urine Nitrite (Negative) Urine Bilirubin (Negative) Urine Urobilinogen (<2.0) mg/dL Ur Leukocyte Esterase (Negative) Salicylates mg/dL Urine Opiates Screen (NotDetected) Ur Oxycodone Screen (NotDetected) Urine Methadone Screen (NotDetected) Ur Propoxyphene Screen (NotDetected) Acetaminophen ug/mL Ur Barbiturates Screen (NotDetected) U Tricyclic Antidepress (NotDetected) Ur Phencyclidine Scrn (NotDetected) Ur Amphetamines Screen (NotDetected) U Methamphetamines Scrn (NotDetected) U Benzodiazepines Scrn (NotDetected) Urine Cocaine Screen (NotDetected) U Marijuana (THC) Screen (NotDetected) 11/11/17 11/11/17 11/11/17 Range/Units 15:25 15:25 15:25 WBC (3.8-10.6) k/uL RBC (4.30-5.90) m/uL Hgb (13.0-17.5) gm/dL Hct (39.0-53.0) % MCV (80.0-100.0) fL MCH (25.0-35.0) pg MCHC (31.0-37.0) g/dL RDW (11.5-15.5) % Plt Count (150-450) k/uL Neutrophils % % Lymphocytes % % Monocytes % % Eosinophils % % Basophils % % Neutrophils # (1.3-7.7) k/uL Lymphocytes # (1.0-4.8) k/uL Monocytes # (0-1.0) k/uL Eosinophils # (0-0.7) k/uL Basophils # (0-0.2) k/uL PT 9.5 (9.0-12.0) sec INR 1.0 (<1.2) APTT 24.6 (22.0-30.0) sec D-Dimer (<0.60) mg/L FEU VBG pH (7.31-7.41) VBG pCO2 (37-51) mmHg VBG HCO3 (24-28) mmol/L Sodium (137-145) mmol/L Potassium (3.5-5.1) mmol/L Chloride (98-107) mmol/L Carbon Dioxide (22-30) mmol/L Anion Gap mmol/L BUN (9-20) mg/dL Creatinine (0.66-1.25) mg/dL Est GFR (CKD-EPI)AfAm (>60 ml/min/1.73 sqM) Est GFR (CKD-EPI)NonAf (>60 ml/min/1.73 sqM) Glucose (74-99) mg/dL Plasma Lactic Acid Lam 1.0 (0.7-2.0) mmol/L Calcium (8.4-10.2) mg/dL Magnesium (1.6-2.3) mg/dL Total Bilirubin (0.2-1.3) mg/dL AST (17-59) U/L ALT (21-72) U/L Alkaline Phosphatase (38-126) U/L Ammonia (<30) umol/L Total Creatine Kinase (55-170) U/L CK-MB (CK-2) (0.0-2.4) ng/mL CK-MB (CK-2) Rel Index Troponin I (0.000-0.034) ng/mL Total Protein (6.3-8.2) g/dL Albumin (3.5-5.0) g/dL Urine Color Urine Appearance (Clear) Urine pH (5.0-8.0) Ur Specific [place] (1.001-1.035) Urine Protein (Negative) Urine Glucose (UA) (Negative) Urine Ketones (Negative) Urine Blood (Negative) Urine Nitrite (Negative) Urine Bilirubin (Negative) Urine Urobilinogen (<2.0) mg/dL Ur Leukocyte Esterase (Negative) Salicylates <1.0 mg/dL Urine Opiates Screen (NotDetected) Ur Oxycodone Screen (NotDetected) Urine Methadone Screen (NotDetected) Ur Propoxyphene Screen (NotDetected) Acetaminophen <10.0 ug/mL Ur Barbiturates Screen (NotDetected) U Tricyclic Antidepress (NotDetected) Ur Phencyclidine Scrn (NotDetected) Ur Amphetamines Screen (NotDetected) U Methamphetamines Scrn (NotDetected) U Benzodiazepines Scrn (NotDetected) Urine Cocaine Screen (NotDetected) U Marijuana (THC) Screen (NotDetected) 11/11/17 11/11/17 11/11/17 Range/Units 15:25 16:26 16:50 WBC (3.8-10.6) k/uL RBC (4.30-5.90) m/uL Hgb (13.0-17.5) gm/dL Hct (39.0-53.0) % MCV (80.0-100.0) fL MCH (25.0-35.0) pg MCHC (31.0-37.0) g/dL RDW (11.5-15.5) % Plt Count (150-450) k/uL Neutrophils % % Lymphocytes % % Monocytes % % Eosinophils % % Basophils % % Neutrophils # (1.3-7.7) k/uL Lymphocytes # (1.0-4.8) k/uL Monocytes # (0-1.0) k/uL Eosinophils # (0-0.7) k/uL Basophils # (0-0.2) k/uL PT (9.0-12.0) sec INR (<1.2) APTT (22.0-30.0) sec D-Dimer 3.53 H (<0.60) mg/L FEU VBG pH 7.42 H (7.31-7.41) VBG pCO2 36 L (37-51) mmHg VBG HCO3 23 L (24-28) mmol/L Sodium (137-145) mmol/L Potassium (3.5-5.1) mmol/L Chloride (98-107) mmol/L Carbon Dioxide (22-30) mmol/L Anion Gap mmol/L BUN (9-20) mg/dL Creatinine (0.66-1.25) mg/dL Est GFR (CKD-EPI)AfAm (>60 ml/min/1.73 sqM) Est GFR (CKD-EPI)NonAf (>60 ml/min/1.73 sqM) Glucose (74-99) mg/dL Plasma Lactic Acid Lam (0.7-2.0) mmol/L Calcium (8.4-10.2) mg/dL Magnesium (1.6-2.3) mg/dL Total Bilirubin (0.2-1.3) mg/dL AST (17-59) U/L ALT (21-72) U/L Alkaline Phosphatase (38-126) U/L Ammonia (<30) umol/L Total Creatine Kinase (55-170) U/L CK-MB (CK-2) (0.0-2.4) ng/mL CK-MB (CK-2) Rel Index Troponin I (0.000-0.034) ng/mL Total Protein (6.3-8.2) g/dL Albumin (3.5-5.0) g/dL Urine Color Urine Appearance (Clear) Urine pH (5.0-8.0) Ur Specific [place] (1.001-1.035) Urine Protein (Negative) Urine Glucose (UA) (Negative) Urine Ketones (Negative) Urine Blood (Negative) Urine Nitrite (Negative) Urine Bilirubin (Negative) Urine Urobilinogen (<2.0) mg/dL Ur Leukocyte Esterase (Negative) Salicylates mg/dL Urine Opiates Screen Not Detected (NotDetected) Ur Oxycodone Screen Not Detected (NotDetected) Urine Methadone Screen Not Detected (NotDetected) Ur Propoxyphene Screen Not Detected (NotDetected) Acetaminophen ug/mL Ur Barbiturates Screen Not Detected (NotDetected) U Tricyclic Antidepress Not Detected (NotDetected) Ur Phencyclidine Scrn Not Detected (NotDetected) Ur Amphetamines Screen Not Detected (NotDetected) U Methamphetamines Scrn Not Detected (NotDetected) U Benzodiazepines Scrn Not Detected (NotDetected) Urine Cocaine Screen Not Detected (NotDetected) U Marijuana (THC) Screen Not Detected (NotDetected) 11/11/17 11/11/17 Range/Units 16:50 17:58 WBC (3.8-10.6) k/uL RBC (4.30-5.90) m/uL Hgb (13.0-17.5) gm/dL Hct (39.0-53.0) % MCV (80.0-100.0) fL MCH (25.0-35.0) pg MCHC (31.0-37.0) g/dL RDW (11.5-15.5) % Plt Count (150-450) k/uL Neutrophils % % Lymphocytes % % Monocytes % % Eosinophils % % Basophils % % Neutrophils # (1.3-7.7) k/uL Lymphocytes # (1.0-4.8) k/uL Monocytes # (0-1.0) k/uL Eosinophils # (0-0.7) k/uL Basophils # (0-0.2) k/uL PT (9.0-12.0) sec INR (<1.2) APTT (22.0-30.0) sec D-Dimer (<0.60) mg/L FEU VBG pH (7.31-7.41) VBG pCO2 (37-51) mmHg VBG HCO3 (24-28) mmol/L Sodium (137-145) mmol/L Potassium (3.5-5.1) mmol/L Chloride (98-107) mmol/L Carbon Dioxide (22-30) mmol/L Anion Gap mmol/L BUN (9-20) mg/dL Creatinine (0.66-1.25) mg/dL Est GFR (CKD-EPI)AfAm (>60 ml/min/1.73 sqM) Est GFR (CKD-EPI)NonAf (>60 ml/min/1.73 sqM) Glucose (74-99) mg/dL Plasma Lactic Acid Lam (0.7-2.0) mmol/L Calcium (8.4-10.2) mg/dL Magnesium (1.6-2.3) mg/dL Total Bilirubin (0.2-1.3) mg/dL AST (17-59) U/L ALT (21-72) U/L Alkaline Phosphatase (38-126) U/L Ammonia <9 (<30) umol/L Total Creatine Kinase (55-170) U/L CK-MB (CK-2) (0.0-2.4) ng/mL CK-MB (CK-2) Rel Index Troponin I (0.000-0.034) ng/mL Total Protein (6.3-8.2) g/dL Albumin (3.5-5.0) g/dL Urine Color Light Yellow Urine Appearance Clear (Clear) Urine pH 7.5 (5.0-8.0) Ur Specific [place] 1.009 (1.001-1.035) Urine Protein Trace H (Negative) Urine Glucose (UA) Negative (Negative) Urine Ketones Negative (Negative) Urine Blood Negative (Negative) Urine Nitrite Negative (Negative) Urine Bilirubin Negative (Negative) Urine Urobilinogen <2.0 (<2.0) mg/dL Ur Leukocyte Esterase Negative (Negative) Salicylates mg/dL Urine Opiates Screen (NotDetected) Ur Oxycodone Screen (NotDetected) Urine Methadone Screen (NotDetected) Ur Propoxyphene Screen (NotDetected) Acetaminophen ug/mL Ur Barbiturates Screen (NotDetected) U Tricyclic Antidepress (NotDetected) Ur Phencyclidine Scrn (NotDetected) Ur Amphetamines Screen (NotDetected) U Methamphetamines Scrn (NotDetected) U Benzodiazepines Scrn (NotDetected) Urine Cocaine Screen (NotDetected) U Marijuana (THC) Screen (NotDetected) Disposition <Jorge Meek - Last Filed: 11/11/17 16:25> Is patient prescribed a controlled substance at d/c from ED?: No <Jorge Moore - Last Filed: 11/11/17 20:21> Clinical Impression: Weakness Disposition: HOME SELF-CARE Condition: Good Instructions: Weakness (ED) Referrals: Singh Childers MD [Primary Care Provider] - 1-2 days
--- NOTE | 2017-11-11 15:58 | XR ---
EXAMINATION TYPE: XR chest 2V DATE OF EXAM: 11/11/2017 COMPARISON: May 22, 2017 HISTORY: Shortness of breath TECHNIQUE: Frontal and lateral views of the chest are obtained. FINDINGS: Scattered senescent parenchymal changes noted. Hyperinflation compatible with COPD. No evidence for infiltrate. No evidence for atelectasis. Heart size is stable. Mediastinal structures are stable and grossly unremarkable. No evidence for hilar prominence. Degenerative changes dorsal spine. IMPRESSION: 1. No evidence for acute pulmonary disease.
[2017-11-11 16:20] LABS: Partial Thromboplastin Time 24.6 sec (22.0-30.0); Prothrombin Time 9.5 sec (9.0-12.0)
[2017-11-11 16:23] LABS: ALT 36 U/L (21-72); AST 41 U/L (17-59); Albumin 4.3 g/dL (3.5-5.0); Alkaline Phosphatase 152 U/L (38-126); Anion Gap 10 mmol/L; Blood Urea Nitrogen 13 mg/dL (9-20); Calcium 9.7 mg/dL (8.4-10.2); Carbon Dioxide 27 mmol/L (22-30); Chloride 93 mmol/L (98-107); Creatine Kinase 136 U/L (55-170); Glucose 71 mg/dL (74-99); Magnesium 1.8 mg/dL (1.6-2.3); Sodium 130 mmol/L (137-145); Total Bilirubin 0.4 mg/dL (0.2-1.3); Total Protein 7.5 g/dL (6.3-8.2)
[2017-11-11 16:24] LABS: Basophils % (A) 0 %; Eosinophils # (A) 0.1 k/uL (0-0.7); Eosinophils % (A) 1 %; HCT 33.6 % (39.0-53.0); HGB 11.3 gm/dL (13.0-17.5); Lymphocytes # (A) 0.7 k/uL (1.0-4.8); Lymphocytes % (A) 16 %; MCH 28.3 pg (25.0-35.0); MCHC 33.7 g/dL (31.0-37.0); Mean Platelet Volume 6.2; Monocytes # (A) 0.5 k/uL (0-1.0); Monocytes % (A) 10 %; Neutrophils # (A) 3.3 k/uL (1.3-7.7); Neutrophils % (A) 71 %; Platelet Count 387 k/uL (150-450); RDW 14.8 % (11.5-15.5); WBC 4.7 k/uL (3.8-10.6)
[2017-11-11 16:36] LABS: Creatine Kinase MB 1.9 ng/mL (0.0-2.4); Troponin I <0.012 ng/mL (0.000-0.034)
[2017-11-11 17:09] LABS: Appearance,Urine Clear (Clear); Bilirubin,Urine Negative (Negative); Blood,Urine Negative (Negative); Color,Urine Light Yellow; Glucose,Urine (UA) Negative (Negative); Ketones,Urine Negative (Negative); Leukocyte Esterase,Urine Negative (Negative); Nitrite,Urine Negative (Negative); PH, Urine 7.5 (5.0-8.0); Protein,Urine Trace (Negative); Specific Gravity,Urine 1.009 (1.001-1.035); Urobilinogen,Urine <2.0 mg/dL (<2.0)
[2017-11-11 17:19] LABS: Amphetamine Screen,Urine Not Detected (NotDetected); Barbiturate Screen,Urine Not Detected (NotDetected); Benzodiazepines Screen,Urine Not Detected (NotDetected); Cocaine Screen,Urine Not Detected (NotDetected); Methadone Screen, Urine Not Detected (NotDetected); Opiate Screen,Urine Not Detected (NotDetected); Oxycodone Screen, Urine Not Detected (NotDetected); Phencyclidine Screen,Urine Not Detected (NotDetected); Tricyclic Antidepressant,Urine Not Detected (NotDetected); Urn Cannabinoid Scrn Not Detected (NotDetected)
[2017-11-11 17:32] LABS: Acetaminophen <10.0 ug/mL; Salicylate <1.0 mg/dL
[2017-11-11 17:58] LABS: VBG PH 7.42 (7.31-7.41)
[2017-11-11] MEDS ORDERED: NALOXONE 0.4 MG/ML 10 ML VIAL IVP STA (18:45)
[2017-11-11 19:32] VITALS: RESP 18
--- NOTE | 2017-11-11 19:38 | CT ---
EXAMINATION TYPE: CT brain wo con DATE OF EXAM: 11/11/2017 COMPARISON: 09/08/2015 HISTORY: Weakness. CT DLP: 1248 mGycm Automated exposure control for dose reduction was used. FINDINGS: There is some cerebral cortical atrophy. There is no mass effect nor midline shift. There is no sign of intracranial hemorrhage. There is mild hypodensity in the periventricular white matter. The clarence rium is intact. Impression Mild atrophy and chronic small vessel ischemia. No acute intracranial abnormality. No significant mandy nge.
--- NOTE | 2017-11-11 19:46 | CT ---
EXAMINATION TYPE: CT angio chest DATE OF EXAM: 11/11/2017 7:32 PM COMPARISON: 05/22/2017 HISTORY: Elevated d-dimer and fatigue. CT DLP: 398.3 mGycm Automated exposure control for dose reduction was used. CONTRAST: CTA scan of the thorax is performed with IV Contrast, patient injected with 70ml mL of Isovue 370, pu lmonary embolism protocol. There are 3-D post processed images.. FINDINGS: There is a 1 cm low-density infiltrate in the superior right upper lobe. There is subpleural reticula r infiltrate in the periphery of the right lung. There is 1.5 cm low-density infiltrate posterior seg ment right upper lobe. There is no pleural effusion. Heart size is normal. There is no pericardial ef fusion. There are multiple mediastinal and bronchial lymph nodes that measure up to 1.5 cm. There is no evide nce of aortic aneurysm or dissection. I see no filling defects in the pulmonary arteries. There is 10% depression of the superior endplate of T3. This appears new compared to old exam. There is small hiatal hernia. IMPRESSION: NO EVIDENCE OF PULMONARY EMBOLISM. THERE IS A CHANGING PATTERN OF PULMONARY INFILTRATES ON THE RIGHT SIDE COMPARED TO OLD EXAM AND CONSI STENT WITH INFLAMMATORY DISEASE. There is stable mediastinal and bronchial adenopathy.
[2017-11-11 20:38] VITALS: BP 187/87; PULSE 77; TEMP 97.4
== END 2017-11-11 20:37 | disposition home or self-care (01) ==
LOC: EC 15:03
DX: R53.1 Weakness (principal); R19.7 Diarrhea, unspecified; R53.83 Other fatigue; J44.9 Chronic obstructive pulmonary disease, unspecified; E11.9 Type 2 diabetes mellitus without complications; K21.9 Gastro-esophageal reflux disease without esophagitis; I10 Essential (primary) hypertension; F32.9 Major depressive disorder, single episode, unspecified; Z87.891 Personal history of nicotine dependence; Z79.891 Long term (current) use of opiate analgesic; Z79.84 Long term (current) use of oral hypoglycemic drugs; Z79.899 Other long term (current) drug therapy
CPT/HCPCS: 36415; 93005; 85379; 80053; 82140; 82550; 82553; 82803; 83605; 83735; 84484; 85025; 85610; 85730; 81003; 80306; 83520 ×2; 71046; 70450; 71275; 99285; 96360; Q9967

== ENCOUNTER → 2018-09-04 | Outpatient (CLI) | payer MEDICARE ==
--- NOTE | 2018-09-04 16:46 | CT ---
EXAMINATION TYPE: CT chest wo con DATE OF EXAM: 09/04/2018 COMPARISON: 11/11/2017 HISTORY: abnormal lung findings CT DLP: 436.2 mGycm. Automated Exposure Control for Dose Reduction was Utilized. TECHNIQUE: CT scan of the thorax is performed without IV contrast. FINDINGS: LUNGS: The previously seen groundglass opacity in the right lung apex and other scattered groundglass opacities in the right middle lobe and right lower lobe, shifting on the prior exam, have resolved i n the interim. However there are multiple bilateral subcentimeter pulmonary nodules are appreciated, solid in nature. The first measures 2 mm and is seen on series 4 image 27 in the left upper lobe, the second in the left lower lobe elongated measuring 3 mm on image 38, the third in the left lower lobe measuring 2 mm on image 42, the fourth is subpleural on image 40 measuring 2 mm, the fifth is 3 mm i n the superior segment of the right lower lobe on image 33. The fourth and largest is located in the right middle lobe measuring 5 mm on image 31. And fifth measures 2 mm on image 28 in the superior seg ment of the right lower lobe. Focal area of groundglass opacity in the left upper lobe anteriorly is present on image 27 only. Another punctate 2 mm pulmonary nodule in the right upper lobe is identifie d and image 29. Strand-like scattered areas of subsegmental atelectasis are seen. Minimal fibrotic ch anges seen within the anterior right upper lobe. These appear retrospectively stable from the exam of 05/22/2017 with the exception of the largest 5 mm right middle lobe lesion. MEDIASTINUM: Lack of IV contrast is noted to limit evaluation for mediastinal and especially hilar ad enopathy. There are no definitive greater than 1 cm hilar or mediastinal lymph nodes. Previously angel cribed right hilar and precarinal adenopathy appear to have decreased in the interim and are better d elineated on the prior CT given contrast on that examination. No cardiomegaly or pericardial effusion is seen. Moderate coronary calcifications are evident, marker of coronary artery disease. OTHER: Small hiatal hernia is appreciated. Old healed fracture deformity of the right glenoid is pres ent. Thoracic spinal nerve stimulator is seen. No new none comminuted fracture of the posterior ninth rib on the left and healed fracture deformity of the 10th posterior left rib are seen. Mild multilev el degenerative changes of the thoracic spine are present. IMPRESSION: 1. Near complete resolution of the previously seen scattered groundglass opacities with only a single left upper lobe groundglass opacity remaining, likely inflammatory pneumonitis. 2. Bilateral subcentimeter pulmonary nodules, the majority of which are stable from the prior 2018, h owever a solitary new 5 mm pulmonary nodule is appreciated for which follow-up in 6 months is recomme nded. 3. Decrease in size of the previously seen hilar and mediastinal adenopathy that would be better eval uated with intravenous contrast.
== END ==
LOC: RADCTMAIN 14:04
PROVIDERS: ATTEND Internal Medicine Sleep Medicine
DX: R91.8 Other nonspecific abnormal finding of lung field (principal); R59.0 Localized enlarged lymph nodes
CPT/HCPCS: 71250

== ENCOUNTER 2020-12-26 08:24 | Day surgery (SDC) | payer MEDICARE ==
[2020-12-21 14:30] VITALS: BMI 24.9
[~2020-12-26 08:24] MED LIST changes: +LACTATED RINGERS 1,000 ML IV SCH; +LIDOCAINE 1% (10MG/ML) FOR IV START INTRADERMA PRN; -REGADENOSON 0.4 MG/5 ML SYRINGE IV ONE
[2020-12-26] MEDS ORDERED: LACTATED RINGERS 1,000 ML IV ONE ×2 (08:51→09:25)
[2020-12-26 08:54] LABS: Glucose,Whole Blood 133 mg/dL (75-99)
[2020-12-26] MEDS ORDERED: PROPOFOL 10 MG/ML 20 ML VIAL IV ONE (08:54)
--- NOTE | 2020-12-26 09:17 | P.PCN ---
Date of Procedure: 12/26/20 Procedure(s) Performed: PREOPERATIVE DIAGNOSIS: GERD, change in bowel habits POSTOPERATIVE DIAGNOSIS: Mild gastritis, mild distal esophagitis, PROCEDURE: 1. EGD with biopsy 2. Colonoscopy with random biopsy ANESTHESIA: MAC SURGEON: Oziel Mullins M.D. SPECIMENS: Antrum, distal esophagus ENDOSCOPIC PROCEDURE: The patient was on the endoscopy table in the left decubitus position. The Olympus gastroscope was inserted into the oropharynx and passed under direct visualization to the region of the third portion of the duodenum. From that point the scope was slowly withdrawn inspecting all surfaces carefully. There were no neoplastic inflammatory or polypoid lesions throughout the duodenum. The pylorus was widely patent. The stomach was carefully inspected. There was mild gastritis present. A biopsy of the antrum took place to rule out H. pylori. Retroflexion revealed a normal hiatus. The e sophagus was then carefully examined. There was mild distal esophagitis present. A single linear erosion was identified was less than 1 cm in length. A biopsy was taken. The remainder the esophagus was examined and there were no neoplastic inflammatory or polypoid lesions throughout the visualized esophagus. The patient was kept on the endoscopy table in the left decubitus position. The Olympus colonoscope was inserted into the anus and passed under direct visualization to the previous ileocolonic anastomosis. From that point the scope was slowly withdrawn. There were no abnormalities seen throughout the transverse descending sigmoid and rectum. There was mild left-sided diverticulosis present. Random biopsies took place throughout the colon to evaluate for microscopic colitis. Digital rectal examination was normal. The patient was taken to the recovery room in stable condition per anesthesia guidelines. RECOMMENDATIONS: await biopsy results
[2020-12-26 09:36] VITALS: BP 130/48; PULSE 69; RESP 14
== END 2020-12-26 10:05 | disposition home or self-care (01) ==
LOC: ORWHC2ENDO 08:24
PROVIDERS: ATTEND Surgery
DX: K29.70 Gastritis, unspecified, without bleeding (principal); K21.00 Gastro-esophageal reflux disease with esophagitis, without bleeding; R19.4 Change in bowel habit; I10 Essential (primary) hypertension; E11.9 Type 2 diabetes mellitus without complications; J44.9 Chronic obstructive pulmonary disease, unspecified; G50.0 Trigeminal neuralgia; F03.90 Unspecified dementia, unspecified severity, without behavioral disturbance, psychotic disturbance, mood disturbance, and anxiety; Z79.899 Other long term (current) drug therapy; Z79.84 Long term (current) use of oral hypoglycemic drugs; Z90.49 Acquired absence of other specified parts of digestive tract; Z96.653 Presence of artificial knee joint, bilateral; Z98.890 Other specified postprocedural states
CPT/HCPCS: 45380; 43239; 88305; J2704